=== PATIENT | female | born 1985 | race Caucasian/White ===

== ENCOUNTER 2019-08-13 13:53 | Observation (INO) | payer OTHER, SELFPAY ==
--- NOTE | 2019-08-13 15:57 | OBADM ---
This patient, Emilee Rivera, admitted to the OB room Labor/Delivery/Recovery 120 for observation. Patient/family oriented to hospital policies and general routines including ID bracelet, bed and alarms, visiting hours, pain management, procedures, bathroom and other care routines, personal items, smoking policy, room service/diet, and visiting hours. Patient/Family are encouraged to report perceived risks to care and to ask questions if they do not understand what they are told or what they should do.
--- NOTE | 2019-09-05 11:52 | PM.OBTRLD ---
OB - Triage/Final Diagnosis Visit Information Date of evaluation: 08/13/19 Final Diagnosis (1) Non-reassuring heart tones complicating , antepartum: Code(s): O36.8390 - Maternal care for abnormalities of the heart rate or rhythm, unspecified trimester, not applicable or unspecified Status: Acute
== END 2019-08-13 15:45 | disposition home or self-care (01) ==
PROVIDERS: Admitting Provider Obstetrics & Gynecology; PCP Family Medicine; Visit Provider Obstetrics & Gynecology
DX: O36.8330 Maternal care for abnormalities of the fetal heart rate or rhythm, third trimester, not applicable or unspecified (principal); Z3A.38 38 weeks gestation of pregnancy
CPT/HCPCS: G0378; G0379

== ENCOUNTER 2019-08-20 13:38 | Outpatient (CLI) | payer OTHER, SELFPAY ==
[2019-08-20 14:15] LABS: Mean Corpuscular HGB Conc 34.3 g/dl (32-36); Mean Corpuscular Hemoglobin 32.3 pg (26-34); Mean Corpuscular Volume 94.3 fl (80-100); Mean Platelet Volume 9.9 fl (7.4-10.4); Platelet Count Result 164 k/mm3 (150-375); Red Blood Count 3.71 M/mm3 (4.2-5.4); Red Cell Distribution Width 13.5 % (11.5-14.5); White Blood Count 8.3 K/mm3 (4.5-10.0)
[2019-08-21 07:59] LABS: Rapid Plasma Reagin Non-Reactive (NonReactive)
--- NOTE | 2019-09-04 14:09 | OP_ITS ---
DATE OF PROCEDURE: 08/21/2019 ADDENDUM: DESCRIPTION OF PROCEDURE: The 2nd layer of the same suture was used for hemostasis and reinforcement. Next, attention was turned to the right fallopian tube, which was grasped with a Peng clamp. A defect was made in the mesosalpinx with the Bovie cautery. Two free ties of 0 plain gut were placed around the fallopian tube and the intervening segment of tube was excised with excellent hemostasis noted. The same procedure was then performed on the left fallopian tube. Both tubal segments were sent for pathologic evaluation. Both tubal ligation sites were found to be hemostatic. The uterus was then returned to the abdomen. Cameron I MT: Héctor
== END 2019-08-20 13:39 | disposition home or self-care (01) ==
PROVIDERS: PCP Family Medicine; Visit Provider Obstetrics & Gynecology
DX: Z34.93 Encounter for supervision of normal pregnancy, unspecified, third trimester (principal); Z3A.00 Weeks of gestation of pregnancy not specified
CPT/HCPCS: 36415; 85027; 86592; 86900; 86901

== ENCOUNTER 2019-08-21 09:29 | Inpatient (IN) | payer OTHER, SELFPAY ==
[2019-08-21] VITALS (54 sets, daily range): BP systolic 106–158; BP diastolic 64–108; PULSE 62–122; RESP 16–20; TEMP 36.3–37.4; O2SAT 96–100; BMI 39.0
[2019-08-21] MEDS: LACTATED RINGERS 1,000 ML 125 ML IV CONT ×2 (10:02→10:33)
--- NOTE | 2019-08-21 10:10 | HP_ITS ---
CHANGED TO DRAFT 08/27/19 REPORT MOVED FROM [id number] TO CORRECT [id number]/ORIGINALLY SIGNED 08/21/19 @ 1214 DATE OF SERVICE: 08/20/2019 Surgery is scheduled today on August 21. HISTORY OF PRESENT ILLNESS: The patient is 34 years old, G5, P 3-0-1-3 at 39 weeks and 2 days gestation with history of 2 prior C-sections, who is being admitted for elective repeat plus tubal ligation. Her has been complicated by gestational diabetes, diet controlled. She has a history of preeclampsia, but none in this . She is feeling normal movement, occasional contractions. No vaginal bleeding and no leakage of fluid. MEDICAL HISTORY: Negative. CURRENT MEDICINES: None. ALLERGIES: NO KNOWN DRUG ALLERGIES. SURGICAL HISTORY: x2. Appendectomy and cholecystectomy. SOCIAL HISTORY: She quit smoking. Denies alcohol or drug use. OBSTETRICAL HISTORY: She had a 40-week vaginal delivery and a 37-week due to preeclampsia and then a 28-week due to preeclampsia and also 1 miscarriage. REVIEW OF SYSTEMS: Negative. PHYSICAL EXAMINATION: VITAL SIGNS: Her weight is 221, blood pressure 137/83. GENERAL: No apparent distress. HEART: Regular rate and rhythm. LUNGS: Clear to auscultation. ABDOMEN: Gravid, soft, nontender, nondistended. EXTREMITIES: Nontender with trace edema. CERVICAL: 1 cm thick, -3 station. ASSESSMENT AND PLAN: 1. G5, P 3-0-1-3 at 39 weeks gestation with history of 2 prior C-sections. Plan is to proceed with repeat . 2. status is reassuring. 3. GBS is negative. 4. Gestational diabetes, diet controlled. We will plan to check blood sugar prior to delivery. 5. Desires sterilization. She has signed consent in the office and at the hospital as well and wants to proceed with tubal ligation along with her C-sections, so that is the plan. D I MT: Héctor DECKER
--- NOTE | 2019-08-21 10:16 | LDADM ---
This patient, Emilee Rivera, was admitted to Labor/Delivery/Recovery 120 on 08/21/19 at 09:29. Plans for labor, pain management and were discussed with patient. Patient/family oriented to hospital policies and general routines including ID bracelet, bed and alarms, visiting hours, pain management, procedures, bathroom and other care routines, personal items, smoking policy, room service/diet and guest tray routines, security routines, and visiting hours. Patient/Family are encouraged to report perceived risks to care and to ask questions if they do not understand what they are told or what they should do. See OBIX for further documentation.
[2019-08-21 10:42] LABS: Glucose Point of Care 79 (65-105)
--- NOTE | 2019-08-21 11:56 | WPDANESEPPF ---
Anes - Initial Pre Proc Eval Procedure: Operation Date: 08/21/19 12:00 Proposed Procedures p Repeat Section with Bilateral Tubal Ligation - Maribel Hanson MD Date/Time: 08/21/19 11:56 Surgeon: Maribel Hanson MD Pre Op Diagnosis: Scheduled Patient Data Age: 34 Gender: F Height: 1.6 m Weight: 100 kg Last Vital Signs Temp 36.3 C L 08/21/19 10:36 Pulse 85 08/21/19 10:31 BP 114/73 08/21/19 10:31 Allergies Allergy/AdvReac Type Severity Reaction Status Date / Time talc Allergy Intermediate RASH, Verified 10/10/18 12:32 ITCHING BABY POWDER Home Medications Medication Instructions Recorded Confirmed Type PNV cmb#95-ferrous fumarate-FA 1 tablet PO DAILY 07/26/19 07/26/19 History [] aspirin 162 mg PO DAILY 07/26/19 07/26/19 History Laboratory Tests 08/21/19 10:39 POC Capillary Glucose 79 mg/dl mg/dl (65-105) Patient hx anesthesia problems: none Family hx anesthesia problems: none PMFSH Family History Family History (Updated 07/26/19 @ 15:04 by Tom Scott RN) Other Acute myocardial infarction Degenerative disorder of bone Diabetes mellitus Hypertension Social History Social History Smoking status: Former smoker Substance use: never Gender identity (if verbalized by the patient): Female Spiritual care concerns: No Anes - Eval Final PreProcedure Day of Procedure 08/21/19 11:56 Patient weight: overweight Heart: regular rate and rhythm Lungs: clear to auscultation and normal air movement Airway: Mallampati scale class II Neurological: alert and oriented Last oral intake: >/= 8 hours ASA classification: II Emergent: no Anesthetic plan: proceed Anesthesia type and monitoring: regional spinal Informed Consent: The patient's anesthetic plan and its attendant risks and benefits were discussed with the patient/family/POA. Questions were solicited and answers provided to the satisfaction of the patient/family/POA.
--- NOTE | 2019-08-21 12:09 | WPDHPUPDATE1 ---
History and Physical Update Update Date/Time: 08/21/19 12:09 History and Physical has been reviewed, including an updated exam of the patient. There are NO changes in the patient's condition. Risks, benefits, and alternatives have been discussed and questions answered. Patient agrees to proceed with procedure.
--- NOTE | 2019-08-21 12:09 | PM.OP ---
Procedure Note - Brief Procedure Note - Brief Date of procedure: 08/21/19 Pre-op diagnosis: Scheduled desires sterilization Post-op diagnosis: same Procedure performed: Repeat LTCS + BTL Anesthesia: spinal Surgeon: Maribel Hanson MD Estimated blood loss (mL): 560 Drains: Yes ([place]) Packing: No Pathology: yes Complications: No immediate complications Condition: stable Disposition: floor Findings: Female infant, cephalic, Apgars 9/9, weight 6#13oz, normal uterus/tubes/ovaries
--- NOTE | 2019-08-21 16:10 | PC.NURSE ---
Patient transferred to post room #282 via stretcher. Support person present. Oriented to unit, room, information board, rooming in, admission packet and security measures. Patient verbalizes understanding.
[2019-08-21] MEDS: SIMETHICONE 80 MG TAB.CHEW PO (23:45)
[2019-08-22 05:30] VITALS: BP 122/70; PULSE 98; RESP 16; TEMP 36.9; O2SAT 99
[2019-08-22] MEDS: SIMETHICONE 80 MG TAB.CHEW PO ×4 (05:45→17:32)
[2019-08-22 06:19] LABS: Basophils Percent Auto 0.3 % (0.2-1.2); Eosinophils Percent Auto 0.3 % (0-4.4); Hematocrit 33.9 % (37.0-47.0); Hemoglobin 11.4 g/dL (12.0-15.0); Immature Granulocyte Absolute 0.05 K/mm3 (0.00-0.031); Immature Granulocyte Percent A 0.4 % (0-0.5); Lymphocytes Percent Auto 11.1 % (18.3-44.2); Mean Corpuscular HGB Conc 33.6 g/dl (32-36); Mean Corpuscular Hemoglobin 32.4 pg (26-34); Mean Corpuscular Volume 96.3 fl (80-100); Mean Platelet Volume 10.1 fl (7.4-10.4); Monocytes Absolute Auto 1.3 K/mm3 (0.1-0.6); Monocytes Percent Auto 9.6 % (2.6-8.5); Neutrophils Absolute Auto 10.6 K/mm3 (1.3-6.7); Neutrophils Percent Auto 78.3 % (45.5-73.1); Platelet Count Result 164 k/mm3 (150-375); Red Blood Count 3.52 M/mm3 (4.2-5.4); Red Cell Distribution Width 13.4 % (11.5-14.5); White Blood Count 13.5 K/mm3 (4.5-10.0)
--- NOTE | 2019-08-22 06:19 | OP_ITS ---
DATE OF PROCEDURE: 08/21/2019 PREOPERATIVE DIAGNOSIS: Intrauterine at 39 weeks and 2 days with history of 2 prior C-sections and desires sterilization. POSTOPERATIVE DIAGNOSIS: Intrauterine at 39 weeks and 2 days with history of 2 prior C-sections and desires sterilization. PROCEDURE PERFORMED: Repeat low transverse section plus bilateral tubal ligations. ANESTHESIA: Spinal, then epidural. ESTIMATED BLOOD LOSS: 560 mL. COMPLICATIONS: None. FINDINGS: Female infant, cephalic presentation. Apgars 9 and 9. Weight 6 pounds 13 ounces. Normal uterus, tubes, and ovaries. INDICATIONS: 34-year-old, G5, P 3-0-1-3 at 39 weeks and 2 days with history of 2 prior C-sections. She had expressed a desire throughout her for repeat and tubal ligation and continued desire for that today. DESCRIPTION OF PROCEDURE: She was taken to the operating room where spinal anesthesia was obtained and given her lidocaine only in her spinal which was not adequate for a , so then proceeded to place an epidural. Once it had set up and was adequate, she was prepared and draped in the normal sterile fashion in the dorsal supine position with a leftward tilt. A Pfannenstiel skin incision was made over her prior incision with a scalpel and extended to the underlying layer of the fascia with the scalpel. The fascia was incised in the midline with a scalpel and extended laterally with the Saeed scissors. The underlying rectus muscles were dissected off bluntly and sharply. The rectus muscles were in the midline. The peritoneum was entered sharply and extended inferiorly and superiorly with good visualization of the bladder. The bladder blade was inserted. The vesicouterine peritoneum was tented up and entered sharply with the Metzenbaum scissors and extended laterally. The bladder flap was created sharply. The bladder blade was reinserted. The lower uterine segment was incised in a transverse fashion with the scalpel. The incision was digitally stretched in the cephalocaudad direction. The membranes were ruptured with clear fluid noted. The 's head was delivered atraumatically. The shoulders and body were delivered easily. The cord was clamped x2 and cut, and the infant was passed to the awaiting nurse. Cord gas and cord blood were obtained. The placenta was manually extracted. The uterus was exteriorized and cleared of all clots and debris. The uterine incision was closed using 0 Vicryl in a running locked fashion. A 2nd layer of the same suture was used for hemostasis and reinforcement. The uterus was then returned to the abdomen. The gutters were cleared of all clots and debris. The uterine incision was reinspected and found to be hemostatic. The rectus muscles were inspected. Any bleeding points were cauterized. The rectus muscles were reapproximated using a 0 Vicryl [id number]-[id number] suture. The fascia was then closed using 0 Vicryl in a running fashion. The subcutaneous tissue was irrigated. All bleeding points were cauterized. The subcutaneous tissue was closed using 2-0 Vicryl [id number]-[id number] sutures and the skin was closed using Insorb absorbable denice. She tolerated the procedure well. Sponge, lap, needle, and instrument counts were correct x2, and she was taken to the recovery room in stable condition. Camreon I MT: Héctor
[2019-08-22] MEDS: DOCUSATE SODIUM 100 MG CAPSULE PO ×2 (07:10→17:32)
[2019-08-22] MEDS: IBUPROFEN 600 MG TABLET PO ×2 (07:10→14:06)
[2019-08-22] MEDS: MULTIVIT/MIN/PREN/FOL AC/IRON TABLET 1 TAB PO (07:13)
--- NOTE | 2019-08-22 07:37 | PM.OBPNVD ---
OB - PN: Subj Subjective Date/time seen: 08/22/19 07:37 OB - PN: Obj Data Labs CBC & Chem 7: 08/22/19 05:36 Labs: Laboratory Results - last 24 hr 08/21/19 08/22/19 10:39 05:36 WBC 13.5 H RBC 3.52 L Hgb 11.4 L Hct 33.9 L MCV 96.3 MCH 32.4 MCHC 33.6 RDW 13.4 Plt Count 164 MPV 10.1 Immature Gran % (Auto) 0.4 Neut % (Auto) 78.3 H Lymph % (Auto) 11.1 L Traill % (Auto) 9.6 H Eos % (Auto) 0.3 Baso % (Auto) 0.3 Lymph # (Auto) 1.50 Traill # (Auto) 1.3 H Eos # (Auto) 0.0 Baso # (Auto) 0.0 Abs Immat Gran (auto) 0.05 H Absolute Neuts (auto) 10.6 H Absolute Nucleated RBC 0.0 Nucleated RBC % 0.0 POC Capillary Glucose 79 OB - PN A/P Plan day: 1 Plan: routine care Time Spent With Patient Time: Total time spent is greater than 50% in coordination of care (as documented) at patient's floor/unit and/or counseling patient: Review of Systems Review of Systems: All systems reviewed & are unremarkable except as noted in HPI and below Exam Const: General: comfortable Resp: Effort & Inspection: normal respiratory effort Psych: Appearance: grossly normal Affect: normal affect Attitude: cooperative Judgement: Good judgement present (Psych)
[2019-08-22 08:45] VITALS: BP 109/70; PULSE 88; RESP 16; TEMP 37.1; O2SAT 96
--- NOTE | 2019-08-22 09:26 | WPDANLDPN2 ---
Anes-Prog Note L&D Date/Time: 08/22/19 09:26 Comfortable throughout: section Neuraxial method: spinal Epidural/Spinal procedure site: clean & non-tender Neuro status: Neuro function grossly intact. Cardiovascular status: normal Respiratory status: normal Airway patency: baseline Mental status: baseline Post-Op hydration status: normal Vital Signs: Last Vital Signs Temp 36.9 C 08/22/19 05:30 Pulse 98 08/22/19 05:30 Resp 16 08/22/19 05:30 BP 122/70 08/22/19 05:30 Pulse Ox 99 08/22/19 05:30 I/O: Intake & Output 08/21/19 08/22/19 08/22/19 23:59 07:59 15:59 Intake Total 1740 1000 Output Total 1500 750 Balance 240 250 Post-procedural complaints: none Patient feedback: Patient satisfied with anesthetic care.
--- NOTE | 2019-08-22 09:27 | WPDANLDNPN2 ---
Anes-Prog Note L&D-Neuraxial Date/Time: 08/22/19 09:27 Neuraxial medications: intrathecal PF morphine Opiod-related complaints: none Patient feedback: Patient satisfied with post-operative pain management.
--- NOTE | 2019-08-22 10:00 | PC.NURSE ---
Consulted with patient, mother reports she has attempted to breastfeed with other three children without success. Mother is pleased this is eagerly latching. Reviewed infant feeding cues, frequencies, duration of feedings, feeding elimination flow sheet, and signs of adequate intake. Mother has to breast in cradle with shallow latch. Reviewed positioning/alignment in cross cradle, holding breast in U hold and guided asymmetrical latch on. Discussed the rational for each. Infant was able to latch correctly. nursed eagerly, with steady draws and frequent swallowing noted. Reviewed signs of a correct latch, effective nursing and suck swallow ratio. Infant was able to maintain latch without discomfort to mother. Nipple care reviewed. sleepy at times with long pausing, advised to stimulate to keep awake and nursing effectively. Instructed mother to call out for RN assistance if she is unable to latch infant for feeding or she has discomfort with nursing. Instructed feeding should be initiated three hours from start of last feeding or if feeding cues are noted before. Mother voiced understanding of information shared.
--- NOTE | 2019-08-22 18:34 | PC.NURSE ---
Patient was given the opportunity to view the discharge video Mother & Baby Care, The First Two Weeks and to ask questions. Patient declined viewing the video and has been given the mother/baby guide for home reference.
[2019-08-22 20:30] VITALS: BP 129/94; PULSE 97; RESP 18; TEMP 36.9; O2SAT 97
[2019-08-23] MEDS: IBUPROFEN 600 MG TABLET PO ×3 (02:42→16:22)
[2019-08-23] MEDS: SIMETHICONE 80 MG TAB.CHEW PO ×2 (02:42→09:29)
[2019-08-23 07:25] VITALS: BP 101/66; PULSE 84; RESP 15; TEMP 36.5; O2SAT 98
--- NOTE | 2019-08-23 07:30 | PC.NURSE ---
PT introductions made and plan of care discussed per post op c section, pain management, breast feeding, daily care activities. PT verbalized understanding of such care.
--- NOTE | 2019-08-23 07:40 | PM.OBPNVD ---
OB - PN: Subj Subjective Date/time seen: 08/23/19 07:40 Patient comments: no complaints, pain well controlled, tolerating diet, flatus present and other (Ambulating and voiding without problems. Lochia similar to menses) baby status: doing well OB - PN: Obj Data Labs CBC & Chem 7: 08/22/19 05:36 OB - PN A/P Plan day: 2 (s/p C section, doing well) Plan: routine care Time Spent With Patient Time: Total time spent is greater than 50% in coordination of care (as documented) at patient's floor/unit and/or counseling patient: Exam Const: General: no acute distress Resp: Auscultation: clear to auscultation bilaterally Cardio: Rate: regular rate Rhythm: regular rhythm GI: Inspection: non-distended, incision (Intact without erythema, drainage, or induration) and other (Fundus firm and nontender below umbilicus) GI Palp: Yes abdominal tenderness (appropriate) and Yes Soft to palpation Extrem: General: no edema
[2019-08-23] MEDS: DOCUSATE SODIUM 100 MG CAPSULE PO (09:26)
[2019-08-23] MEDS: MULTIVIT/MIN/PREN/FOL AC/IRON TABLET 1 TAB PO (09:26)
--- NOTE | 2019-08-23 09:40 | PC.NURSE ---
Mother has to breast upon entering. Reviewed feeding cues, frequencies, duration of feedings, feeding elimination flow sheet, and signs of adequate intake. Reviewed positioning/alignment in cross cradle, holding breast in U hold and guided asymmetrical latch on. Discussed rational for each. was latched correctly. Mother denies difficulties/discomfort with feeding. Infant nursed eagerly, with steady draws and frequent swallowing noted. Reviewed signs of a correct latch, effective nursing and suck swallow ratio. Infant was able to maintain latch without discomfort to mother. Nipple care reviewed. Advised to stimulate to keep awake and nursing effectively. Instructed mother to call out for RN assistance if she is unable to latch for feeding or she has discomfort with nursing. Instructed feeding should be initiated three hours from start of last feeding or if feeding cues are noted before. Mother voiced understanding of information shared.
--- NOTE | 2019-08-23 17:19 | PC.NURSE ---
On 08/23/19, the student, [ Willie Naqvi], provided care and completed [facility] documentation on this patient. I have reviewed the student's documentation and agree with the findings.
[2019-08-23 20:40] VITALS: BP 128/88; PULSE 81; RESP 18; TEMP 36.9; O2SAT 100
[2019-08-24] MEDS: SIMETHICONE 80 MG TAB.CHEW PO ×2 (00:28→17:02)
[2019-08-24] MEDS: IBUPROFEN 600 MG TABLET PO ×3 (00:28→15:10)
--- NOTE | 2019-08-24 07:33 | PM.OBPNVD ---
OB - PN: Subj Subjective Date/time seen: 08/24/19 07:33 Patient comments: no complaints, pain well controlled, tolerating diet, flatus present and other (Lochia less than menses. Ambulating and voiding without problems) baby status: doing well OB - PN: Obj Data Labs CBC & Chem 7: 08/22/19 05:36 OB - PN A/P Plan day: 3 (s/p section, doing well and ready to be discharged home) Plan: routine care, discharge home and other (Follow up in office in 1 week) Time Spent With Patient Time: Total time spent is greater than 50% in coordination of care (as documented) at patient's floor/unit and/or counseling patient: Exam Const: General: no acute distress Resp: Auscultation: clear to auscultation bilaterally Cardio: Rate: regular rate Rhythm: regular rhythm GI: Inspection: non-distended, incision (Intact without erythema, drainage, or induration) and other (Fundus firm and nontender below umbilicus) GI Palp: Yes abdominal tenderness (appropriate) and Yes Soft to palpation Extrem: General: no edema
--- NOTE | 2019-08-24 07:33 | PM.OBDSVD ---
DS: Diagnosis Discharge Diagnosis (1) Previous delivery affecting , delivered: Code(s): O34.219 - Maternal care for unspecified type scar from previous delivery Status: Acute (2) Sterilization: Code(s): Z30.2 - Encounter for sterilization Status: Acute OB - DS: Summary OB Procedures : NST OB Procedures Intrapartum: OB Procedures: : None Peripartum Data Delivery Method: Section Procedures: Procedures Operation Date: 08/21/19 12:00 Actual Procedures Side Surgeon p Repeat Section with Bilateral Tubal Ligation Maribel Hanson MD complications: none Status at Discharge Functional status at discharge: independent ambulation Overall status at discharge: patient is progressing back to baseline Time Spent with Patient Time attestation: Total time spent providing and/or coordinating discharge services: Time spent: Less than 30 minutes DS: Data Data Completed and Pending Completed studies during hospitalization: Pending at discharge 08/21/19 12:58 Surgical [PTH] Routine Discharge Plan Discharge Attending physician on discharge: Maribel Hanson Discharging Clinician: Maribel Hanson Patient Disposition: Home, Self-Care Activity: may shower and pelvic rest Diet: regular Wound Care Instructions: incision open to air Patient Instructions: Antibiotic Form Stand Alone Forms: General Discharge Information Follow-up/Referrals: Maribel Hanson MD [Physician] - 1 Week Discharge Medications: New hydrocodone-acetaminophen 5-325 mg Tablet 1 tab PO Q3H PRN (Reason: Moderate Pain (4-6)) Qty: 30 RF: 0 ibuprofen 600 mg Tablet 600 mg PO Q6H PRN (Reason: Cramping) Qty: 60 RF: 0 Continued PNV cmb#95-ferrous fumarate-FA [] 28 mg iron- 800 mcg Tablet 1 tablet PO DAILY RF: 0 Discontinued aspirin 81 mg Tablet,Chewable 162 mg PO DAILY RF: 0 Date of admission: 08/21/19 09:29 Primary Care Provider: Phong*Rupa Admitting Provider: Maribel Hanson Attending physician on admission: Maribel Hanson
[2019-08-24 07:55] VITALS: BP 93/61; PULSE 72; RESP 16; TEMP 36.4; O2SAT 99
--- NOTE | 2019-08-24 08:45 | PC.NURSE ---
Mother is able to independently latch infant with appropriate positioning/alignment. She denies any nipple discomfort, is feeding as required and waking to feed if needed. Mother chooses to supplement after . Mother will feel more comfortable with discontinuing supplement once her milk is in. Discussed pumping a few times per day for stimulation of supply has had several effective feedings in the past 24 hours, and is currently meeting outcomes for weight, output, jaundice and feeding frequencies. Mother states she feels confident to continue effective at home. Reviewed transition to breast milk, signs of adequate intake, and engorgement/relief. Instructed to call ICP if intake/output less than required. Reviewed regular medications mother is taking. Information provided per R[place]. Reviewed community resources on the [facility] website and in the Mom/Baby guide. Information on outpatient services provided. Mother has no further questions at this time.
--- NOTE | 2019-08-24 08:45 | PC.NURSE ---
Patient viewed the discharge video Mother & Baby Care, The First Two Weeks . Patient was given the opportunity and encouraged to ask questions. Patient verbalized understanding of information shared and has been given the mother/baby guide for home reference.
[2019-08-24] MEDS: DOCUSATE SODIUM 100 MG CAPSULE PO ×2 (08:49→17:02)
[2019-08-24] MEDS: MULTIVIT/MIN/PREN/FOL AC/IRON TABLET 1 TAB PO (08:49)
--- NOTE | 2019-08-24 17:00 | PC.NURSE ---
Patient declines [facility] follow up. She already has a follow up scheduled with Dr. Hanson on Monday 08/28.
== END 2019-08-24 18:40 | disposition home or self-care (01) | DRG 785 ==
LOC: ANHLDR 10:07 → ANHOB2 16:19
PROVIDERS: Admitting Provider Obstetrics & Gynecology; PCP Family Medicine; Visit Provider Obstetrics & Gynecology
PROC: 10D00Z1 Extraction of Products of Conception, Low, Open Approach (ICD-10-PCS; CPT 59514; principal; 2019-08-21 12:00)
DX: O34.211 Maternal care for low transverse scar from previous cesarean delivery (principal); Z37.0 Single live birth; Z3A.39 39 weeks gestation of pregnancy; O24.420 Gestational diabetes mellitus in childbirth, diet controlled; Z23 Encounter for immunization; Z30.2 Encounter for sterilization
CPT/HCPCS: 36415; 85025; 85027; 86592; 86900; 86901; 88302; 88307; 90471; 90686; A9270; G0008; J2274; J2590; J7120

== ENCOUNTER 2021-06-28 15:29 | Emergency (ER) | payer OTHER, SELFPAY ==
--- NOTE | ~2021-06-28 | XR_ITS ---
EXAMINATION: XR ankle RT min 3V EXAM DATE: 06/28/2021 18:15 INDICATION: Trauma. TECHNIQUE: Right ankle frontal, lateral and oblique projections obtained and reviewed. Comparison is made to prior examination from 05/07/2018. FINDINGS: The right ankle mortise appears intact. There are no acute fractures or dislocations iden tified. There is no subcutaneous gas. There is soft tissue swelling over the ankle laterally. Ther e are no radiopaque foreign bodies. IMPRESSION: 1. XR ankle RT min 3V exam without acute osseous findings. 2. Soft tissue swelling. Reviewed, dictated and finalized at location A. PTURE INSTRUCTOR
[2021-06-28 15:39] VITALS: BP 117/81; PULSE 114; RESP 16; TEMP 36.6; O2SAT 100
[2021-06-28] MEDS: HYDROcodone/acetaminophen (*CRX) 5-325 MG TABLET 1 TAB PO (18:21)
--- NOTE | 2021-06-28 18:44 | ED.LOWEXIN ---
HPI - Extremity Injury (Lower) General Chief Complaint: Extremity Injury, Lower Stated Complaint: R ANKLE INJURY Time Seen by Provider: 06/28/21 17:48 History of Present Illness HPI Narrative: Patient is a 36-year-old female who presents ER with right ankle pain. She has swelling over the lateral aspect of her ankle. Patient reports she was walking through a parking lot last night on her way to a bar when she stepped over a parking block and stepped into a hole. She suffered inversion injury and pain. Had difficulty bearing weight initially but then was able to drink some shots and ambulate for the rest the evening. Today she can only ambulate if she does toe-touch weightbearing. No numbness or tingling. Denies fevers or chills or sweats. She did not strike her head or lose consciousness. Related Data Allergies Allergy/AdvReac Type Severity Reaction Status Date / Time talc Allergy Intermediate RASH, Verified 10/10/18 12:32 ITCHING BABY POWDER Review of Systems Constitutional: Constitutional: Denies chills, Denies fever(s) and Denies weakness Musculoskeletal: Musculoskeletal: Denies back pain, Reports arthralgias, Reports joint swelling and Denies muscle cramps Integumentary/Breasts: Comments: Abrasions to the feet and holman due to fall. Neurologic: Denies syncope, Denies headache(s), Denies focal weakness and Denies numbness PMFSH Past Medical History Medical History (Updated 06/28/21 @ 19:00 by Taran Suarez MD) Healthy female adult Surgical History Surgical History (Updated 06/28/21 @ 19:00 by Taran Suarez MD) H/O dilation and curettage History of appendectomy History of cholecystectomy Previous section Family History Family History (Updated 07/26/19 @ 15:04 by Tom Scott RN) Other Acute myocardial infarction Degenerative disorder of bone Diabetes mellitus Hypertension Social History Social History Smoking status: Former smoker Substance use: never Gender identity (if verbalized by the patient): Female Spiritual care concerns: No Exam Narrative: GENERAL: Well-appearing, well-nourished, and in no acute distress. HEAD: Normocephalic, atraumatic. CHEST: Clear to auscultation. No respiratory distress. HEART: Regular rate and rhythm. EXTREMITIES: Focused exam the right ankle reveals swelling over the lateral malleolus with tenderness and bruising. Limited flexion extension of the ankle due to pain. Neurovascular intact distal to the injury. No tenderness and no limitation range of motion in the knee or hip on the right side. SKIN: Warm, dry, no rash. Abrasions of the feet and left holman. NEURO: No focal deficits. Alert and oriented x3. PSYCH: Normal mood and affect. Course Course Emergency Course: Patient informed results. She has been given crutch training. Recommend purchasing ankle stirrup splint. Vital Signs Vital signs: Vital Signs Temperature 97.8 F 06/28/21 15:39 Pulse Rate 114 H 06/28/21 15:39 Respiratory Rate 16 06/28/21 15:39 Blood Pressure 117/81 06/28/21 15:39 Pulse Oximetry 100 06/28/21 15:39 Temperature 97.8 F 06/28/21 15:39 Pulse Rate 114 H 06/28/21 15:39 Respiratory Rate 16 06/28/21 15:39 Blood Pressure 117/81 06/28/21 15:39 Pulse Oximetry 100 06/28/21 15:39 MDM - Extremity Injury (Lower) Imaging Data Radiologist's impression: ITS Impressions Ankle X-Ray 06/28/21 18:22 IMPRESSION: 1. XR ankle RT min 3V exam without acute osseous findings. 2. Soft tissue swelling. Discharge Plan Discharge Clinical Impression: Ankle sprain and strain Patient Disposition: Home, Self-Care Condition: Stable Instructions: Ankle Sprain (ED), Crutch Instructions (ED), Ankle Stirrup Splint (ED) Additional Instructions: You should purchase a ankle stirrup splint from [employer] or [facility]. Bear weight as tolerated with crutches. Follow-up with your primary care
== END 2021-06-28 19:19 | disposition home or self-care (01) ==
PROVIDERS: Emergency Provider Emergency Medicine; PCP Family Medicine
DX: S93.401A Sprain of unspecified ligament of right ankle, initial encounter (principal); S96.911A Strain of unspecified muscle and tendon at ankle and foot level, right foot, initial encounter; Z87.891 Personal history of nicotine dependence; X50.9XXA Other and unspecified overexertion or strenuous movements or postures, initial encounter
CPT/HCPCS: 73610; 99283; A9270

== ENCOUNTER 2021-08-07 13:40 | Observation (INO) | payer OTHER, MEDICAID, SELFPAY ==
[2021-08-07] VITALS (11 sets, daily range): BP systolic 97–137; BP diastolic 54–81; PULSE 62–108; RESP 14–25; TEMP 36.4–38.2; O2SAT 97–100; BMI 29.5
--- NOTE | ~2021-08-07 | XR_ITS ---
EXAMINATION: XR retrograde pyelo w/stent LT INDICATION: Left ureteral stones, left flank pain TECHNIQUE: 294 intraoperative fluoroscopic images are submitted for review. Total fluoroscopic time i s 44.9 seconds. COMPARISON: None available FINDINGS: Fluoroscopic images demonstrate mild left hydroureteronephrosis. A left internal ureteral s tent is seen coiling in the left renal pelvis. IMPRESSION: 1. Mild left hydroureteronephrosis with fluoroscopic images demonstrating the internal ureteral stent coiling in the left renal pelvis. Please refer to procedure note for full details. Reviewed, dictated and finalized at location F. MAKER IMPRESSION: 1. Mild left hydroureteronephrosis with fluoroscopic images demonstrating the i nternal ureteral stent coiling in the left renal pelvis. Please refer to proced ure note for full details.
--- NOTE | ~2021-08-07 | CT_ITS ---
EXAMINATION: CT abdomen pelvis wo con EXAM DATE: 08/07/2021 15:43 INDICATION: left flank pain, HX kidney stones. Nausea and vomiting. TECHNIQUE: Spiral CT of the abdomen and pelvis was performed without contrast. Axial, coronal and sag ittal images were reviewed. The dose-length product (DLP) for this examination was 191.83 mGy-cm. T he exposure was tailored according to patient size (auto mA exposure control), and iterative reconstr uction (ASIR) was used as additional dose reduction technique. Comparison is made to prior examinatio n from 09/26/2018. FINDINGS: There are 2 left pelvic calcifications believed to be distal ureteral stones, the largest i s at the UVJ measuring 5 mm, axial image 153, next largest contiguous just proximal to this measuring 2 mm. There is mild left-sided obstructive nephropathy. 6 mm right inferior calyceal stone. Other sm aller bilateral calyceal stones. Right renal lesion probably cyst correlating with prior contrast enh anced study, measuring about 2.8 cm. The uterus is anteverted and morphologically normal. The bladder is unremarkable. The liver, splee n, adrenal glands and pancreas are unremarkable. Gallbladder is unremarkable. No biliary obstructio n. There is no retroperitoneal or pelvic lymphadenopathy. The appendix is normal. The stomach and small bowel are unremarkable. There is expected amount of c olonic stool. No free intraperitoneal gas. The heart is normal in size. There are no pericardial or pleural effusions. The lung bases are unremarkable. There are no osteoblastic or osteolytic les ions identified. IMPRESSION: 1. Left UVJ 5 mm stone, another 2 mm stone just proximal to this. Mild obstructive nephropathy. 2. Bilateral nephrolithiasis. Reviewed, dictated and finalized at location B. ING CARRIER IMPRESSION: 1. Left UVJ 5 mm stone, another 2 mm stone just proximal to this. Mild obstruc tive nephropathy. 2. Bilateral nephrolithiasis.
--- NOTE | 2021-08-07 15:08 | ED.ABDPAIN ---
HPI - Abdominal Pain General Chief Complaint: Abdominal Pain Stated Complaint: kidney stone? Time Seen by Provider: 08/07/21 14:46 Source: patient Mode of arrival: ambulatory Limitations: no limitations History of Present Illness HPI narrative: 36-year-old female presents to the ED with a 5-day history of left-sided flank pain as well as a 2-day history of nausea, dizziness, and generalized fatigue. Flank pain at times radiates to the left lower quadrant of the abdomen. Pain became more significant yesterday. She states that she has a history of nephrolithiasis which has required intervention in the past. No abdominal surgical history. LMP was approximately 1 week ago. No recent history of documented fever, chills, emesis, diarrhea, constipation, melena, hematochezia, dysuria, or hematuria. She has not taken any medication for her symptoms. Related Data Home Medications Medication Instructions Recorded Confirmed No Home Medications 08/07/21 08/07/21 Allergies Allergy/AdvReac Type Severity Reaction Status Date / Time talc Allergy Intermediate RASH, Verified 08/07/21 13:53 ITCHING BABY POWDER Review of Systems Review of Systems: CONSTITUTIONAL: Denies fever, chills, or sweats. EYES: Denies visual changes, redness, or discharge. ENT: Denies rhinorrhea, congestion, sore throat, or otalgia. CARDIOVASCULAR: Denies chest pain, palpitations, or edema. RESPIRATORY: Denies cough or dyspnea. GASTROINTESTINAL: + Flank pain and nausea. Denies vomiting and diarrhea. GENITOURINARY: Denies dysuria or hematuria. SKIN: Denies rash or itching. MUSCULOSKELETAL: Denies back pain, joint pain, or myalgia. NEUROLOGIC: Denies headache, numbness, dizziness, or weakness. PSYCHIATRIC: Denies anxiety or depression. All systems reviewed & are unremarkable except as noted in HPI and below PMFSH Past Medical History Medical History Healthy female adult Surgical History Surgical History H/O dilation and curettage History of appendectomy History of cholecystectomy Previous section Family History Family History Other Acute myocardial infarction Degenerative disorder of bone Diabetes mellitus Hypertension Social History Social History Smoking status: Former smoker Substance use: never Gender identity (if verbalized by the patient): Female Spiritual care concerns: No Exam Narrative: GENERAL: Well-appearing, well-nourished, and in no acute distress. HEAD: Normocephalic, atraumatic. EYES: PERRLA and EOMI. ENT: Nares clear, no rhinorrhea or epistaxis. Mucous membranes moist. Oropharynx without tonsillar hypertrophy exudate or other lesions. Bilateral TMs pearly cavazos nonbulging NECK: Supple. No adenopathy or masses. No carotid bruits or JVD CHEST: Clear to auscultation. No respiratory distress. No wheezes rales or rhonchi HEART: Regular rate and rhythm. No murmur heard. Normal peripheral pulses. ABDOMEN: Mild left flank tenderness palpation. Very mild left CVA tenderness. Remainder of abdomen is nontender to palpate. No guarding, rigidity, or rebound tenderness. EXTREMITIES: Normal range of motion. No edema. SKIN: Warm, dry, no rash. NEURO: No focal deficits. Alert and oriented x3. PSYCH: Normal mood and affect. Course Vital Signs Vital signs: Vital Signs Temperature 100.8 F H 08/07/21 13:50 Pulse Rate 108 H 08/07/21 13:50 Respiratory Rate 18 08/07/21 13:50 Blood Pressure 137/79 08/07/21 13:50 Pulse Oximetry 99 08/07/21 13:50 Temperature 100.8 F H 08/07/21 13:50 Pulse Rate 108 H 08/07/21 13:50 Respiratory Rate 18 08/07/21 13:50 Blood Pressure 137/79 08/07/21 13:50 Pulse Oximetry 99 08/07/21 13:50 MDM - Abdominal Pain
[2021-08-07 15:38] LABS: Basophils Percent Auto 0.3 % (0.2-1.2); Eosinophils Percent Auto 0.1 % (0-4.4); Hematocrit 40.6 % (37.0-47.0); Hemoglobin 13.4 g/dL (12.0-15.0); Immature Granulocyte Absolute 0.06 K/mm3 (0.00-0.031); Immature Granulocyte Percent A 0.5 % (0-0.5); Lymphocytes Absolute Auto 1.59 K/mm3 (0.9-3.2); Mean Corpuscular Hemoglobin 32.1 pg (26-34); Mean Corpuscular Volume 97.4 fl (80-100); Mean Platelet Volume 9.3 fl (7.4-10.4); Monocytes Absolute Auto 1.4 K/mm3 (0.1-0.6); Neutrophils Absolute Auto 9.2 K/mm3 (1.3-6.7); Neutrophils Percent Auto 75.1 % (45.5-73.1); Platelet Count Result 206 k/mm3 (150-375); Red Blood Count 4.17 M/mm3 (4.2-5.4); Red Cell Distribution Width 12.9 % (11.5-14.5); White Blood Count 12.2 K/mm3 (4.5-10.0)
[2021-08-07 15:48] LABS: Alanine Aminotransferase 31 U/L (4-35); Albumin Level 3.7 g/dL (3.5-5.1); Alkaline Phosphatase 56 U/L (38-126); Anion Gap 7 mmol/L (8-16); Aspartate Amino Transferase 46 U/L (14-36); Bilirubin,Total 0.8 mg/dL (0.2-1.3); Blood Urea Nitrogen 9 mg/dL (7-17); Calcium 8.5 mg/dL (8.4-10.2); Carbon Dioxide 27 mmol/L (22-30); Chloride 102 mmol/L (98-107); Estimated CRCL calculation 73 ml/min; Estimated Glomerular Filt Rate > 60; Glucose 99 mg/dL (65-110); Potassium 4.3 mmol/L (3.4-5.0); Sodium 136 mmol/L (137-145)
[2021-08-07] MEDS: KETOROLAC 30 MG/ML VIAL (*BKC) 15 MG IV PUSH (15:48)
[2021-08-07] MEDS: ONDANSETRON INJ 4 MG/2 ML VIAL IV PUSH ×2 (15:48→16:52)
[2021-08-07 16:09] LABS: Add Urine Microscopic? YES; Amorphous Sediment Urine Few; Appearance Urine Cloudy (Clear); Bacteria Urine Trace /hpf; Bilirubin Urine Negative (Negative); Blood Urine 2+ (Negative); Color Urine Yellow (Yellow); Glucose Urine UA Negative (Negative); Ketones Urine Negative (Negative); Leukocyte Esterase Ur 3+ LEU/UL (Negative); Mucus Urine Rare /lpf; Nitrate Urine Negative (Negative); Protein Urine 1+ mg/dL (Negative); RBC Urine >75 /hpf (0-2); Specific Grav Ur 1.014 (1.001-1.035); Squamous Epithelial Cell Urine Few /hpf (Few); Urobilinogen Urine Negative mg/dL (<2.0); WBC Clumps Urine Present /HPF; WBC Urine >75 /hpf
[2021-08-07] MEDS: MORPHINE SULFATE (*CRX) 4 MG/ML INJ IV PUSH (16:52)
[2021-08-07] MEDS: cefTRIAXone 2 GM in SODIUM CHLORIDE 0.9% IV 100 ML 200 ML IVPB (16:52)
--- NOTE | 2021-08-07 16:52 | WPDURCON ---
Assessment and Plan Assessment and plan (1) Calculus of left ureter: Code(s): N20.1 - Calculus of ureter Status: Acute Assessment and Plan: This is a 36-year-old female with a history of nephrolithiasis who presents with a obstructing left collecting system due to distal ureteral stones and associated infection, concerning for urosepsis. -the patient to be taken to the operating today for cystoscopy and left ureteral stent insertion. She understands the risks of procedure include not limited to infection, bleeding, pain, inability to place stent, need for additional operations. She understands the need for definitive stone management operation at a later date. -the patient will be admitted postoperatively for IV antibiotics. (2) UTI (urinary tract infection): Code(s): N39.0 - Urinary tract infection, site not specified Status: Acute (3) Renal calculus, bilateral: Code(s): N20.0 - Calculus of kidney Status: Acute Urology Consult Note HPI Date Seen: 08/07/21 Primary Care Provider: Rupa Richardson, Consult Narrative Narrative: Emilee Rivera is a 36 year old female who presented the ER with pain and fever. She was found on CT scan imaging to have obstructing left ureteral stones. Urology was consulted to evaluate the patient. Patient states she has fevers chills. She denies nausea vomiting. Review of Systems Review of Systems: All systems reviewed & are unremarkable except as noted in HPI and below PMFSH Past Medical History Medical History Healthy female adult Surgical History Surgical History H/O dilation and curettage History of appendectomy History of cholecystectomy Previous section Family History Family History Other Acute myocardial infarction Degenerative disorder of bone Diabetes mellitus Hypertension Social History Social History Smoking status: Former smoker Substance use: never Gender identity (if verbalized by the patient): Female Spiritual care concerns: No Meds Home Medications and Allergies Home Medications Medication Instructions Recorded Confirmed Type No Home Medications 08/07/21 08/07/21 History Allergies Allergy/AdvReac Type Severity Reaction Status Date / Time talc Allergy Intermediate RASH, Verified 08/07/21 13:53 ITCHING BABY POWDER Vital Signs Vital Signs - 24 hr 08/07/21 13:50 08/07/21 16:00 08/07/21 16:15 Temperature 38.2 C H Pulse Rate 108 H 100 98 Respiratory Rate 18 25 H 23 H Blood Pressure 137/79 Pulse Oximetry 99 99 98 08/07/21 16:30 Temperature Pulse Rate 91 Respiratory Rate 19 Blood Pressure Pulse Oximetry 98 Results Labs CBC & Chem 7: 08/07/21 15:23 08/07/21 15:23 Labs: Short CBC 08/07/21 Range/Units 15:23 WBC 12.2 H (4.5-10.0) K/mm3 Hgb 13.4 (12.0-15.0) g/dL Hct 40.6 (37.0-47.0) % Plt Count 206 (150-375) k/mm3 BMP 08/07/21 15:23 Sodium 136 L Potassium 4.3 Chloride 102 Carbon Dioxide 27 BUN 9 D Creatinine 0.90 Glucose 99 Calcium 8.5 Liver Function 08/07/21 Range/Units 15:23 Total Bilirubin 0.8 (0.2-1.3) mg/dL AST 46 H (14-36) U/L ALT 31 (4-35) U/L Alkaline Phosphatase 56 (38-126) U/L Albumin 3.7 (3.5-5.1) g/dL Urine 08/07/21 Range/Units 15:25 Urine Color Yellow (Yellow) Urine Appearance Cloudy H (Clear) Urine pH 7.0 (5.0-9.0) Ur Specific [place] 1.014 (1.001-1.035) Urine Protein 1+ H (Negative) mg/dL Urine Glucose (UA) Negative (Negative) mg/dL [facility] [phone] CT Scan ReportSigned Patient: Emilee Rivera SDOB:
--- NOTE | 2021-08-07 16:55 | WPDANESEPP ---
Anes - Eval Pre Procedure Procedure: cysto special Date/Time: 08/07/21 16:55 Surgeon: leeanne Preop Diagnosis: left ureteral stone Pre Op Diagnosis: kidney stone? Patient Data Age: 36 Gender: F Height: 1.6 m Weight: 70.45 kg Last Vital Signs Temp 38.2 C H 08/07/21 13:50 Pulse 91 08/07/21 16:30 Resp 19 08/07/21 16:30 BP 137/79 08/07/21 13:50 Pulse Ox 98 08/07/21 16:30 Allergies Allergy/AdvReac Type Severity Reaction Status Date / Time talc Allergy Intermediate RASH, Verified 08/07/21 13:53 ITCHING BABY POWDER Home Medications Medication Instructions Recorded Confirmed Type No Home Medications 08/07/21 08/07/21 History Laboratory Tests 08/07/21 08/07/21 08/07/21 15:23 15:23 15:25 WBC 12.2 K/mm3 H K/mm3 (4.5-10.0) RBC 4.17 M/mm3 L M/mm3 (4.2-5.4) Hgb 13.4 g/dL g/dL (12.0-15.0) Hct 40.6 % % (37.0-47.0) MCV 97.4 fl fl (80-100) MCH 32.1 pg pg (26-34) MCHC 33.0 g/dl g/dl (32-36) RDW 12.9 % % (11.5-14.5) Plt Count 206 k/mm3 k/mm3 (150-375) MPV 9.3 fl fl (7.4-10.4) Immature Gran % (Auto) 0.5 % % (0-0.5) Neut % (Auto) 75.1 % H % (45.5-73.1) Lymph % (Auto) 13.0 % L % (18.3-44.2) [place] % (Auto) 11.0 % H % (2.6-8.5) Eos % (Auto) 0.1 % % (0-4.4) Baso % (Auto) 0.3 % % (0.2-1.2) Lymph # (Auto) 1.59 K/mm3 K/mm3 (0.9-3.2) [place] # (Auto) 1.4 K/mm3 H K/mm3 (0.1-0.6) Eos # (Auto) 0.0 K/mm3 K/mm3 (0-0.3) Baso # (Auto) 0.0 K/mm3 K/mm3 (0.0-0.1) Abs Immat Gran (auto) 0.06 K/mm3 H K/mm3 (0.00-0.031) Absolute Neuts (auto) 9.2 K/mm3 H K/mm3 (1.3-6.7) Absolute Nucleated RBC 0.0 K/mm3 K/mm3 (0.0-0.012) Nucleated RBC % 0.0 % % (0.0-0.2) Sodium 136 mmol/L L mmol/L (137-145) Potassium 4.3 mmol/L mmol/L (3.4-5.0) Chloride 102 mmol/L mmol/L (98-107) Carbon Dioxide 27 mmol/L mmol/L (22-30) Anion Gap 7 mmol/L L mmol/L (8-16) BUN 9 mg/dL D mg/dL (7-17) Creatinine 0.90 mg/dL mg/dL (0.7-1.0) Estim Creat Clear Calc 73 ml/min ml/min Estimated GFR > 60 (59 - ) Glucose 99 mg/dL mg/dL (65-110) Calcium 8.5 mg/dL mg/dL (8.4-10.2) Total Bilirubin 0.8 mg/dL mg/dL (0.2-1.3) AST 46 U/L H U/L (14-36) ALT 31 U/L U/L (4-35) Alkaline Phosphatase 56 U/L U/L (38-126) Total Protein 7.0 g/dL g/dL (6.3-8.2) Albumin 3.7 g/dL g/dL (3.5-5.1) Urine Color Yellow (Yellow) Urine Appearance Cloudy H (Clear) Urine pH 7.0 (5.0-9.0) Ur Specific [place] 1.014 (1.001-1.035) Urine Protein 1+ mg/dL H mg/dL (Negative) Urine Glucose (UA) Negative mg/dL mg/dL (Negative) Urine Ketones Negative mg/dL mg/dL (Negative) Ur Blood (Man) 2+ H (Negative) Urine Nitrate Negative (Negative) Urine Bilirubin Negative (Negative) Urine Urobilinogen Negative mg/dL mg/dL (<2.0) Leukocyte Esterase Rfl 3+ BARBIE/UL H BARBIE/UL (Negative) Urine RBC >75 /hpf H /hpf (0-2) Urine WBC >75 /hpf H /hpf Urine WBC Clumps Present /HPF H /HPF (None) Ur Squamous Epith Cells Few /hpf /hpf (Few) Amorphous Sediment Few H (None) Urine Bacteria Trace /hpf /hpf Urine Mucus Rare /lpf /lpf Urine Test Cancelled Patient hx anesthesia problems: none Family hx anesthesia problems: none Results Review: All pre-operative results and documents have been reviewed as part of the pre-operative evaluation. [facility] Past Medical History Medical History (Updated
[2021-08-07] MEDS: LACTATED RINGERS 1,000 ML 30 ML IV CONT (17:00)
--- NOTE | 2021-08-07 17:19 | PC.NURSE ---
OR team here to take patient to the OR at this time. All of patient's belongings sent with patient in patient belonging bag.
[2021-08-07] MEDS: LIDOCAINE HCL 2% GEL UROJET 10 ML PKG MUCOUS MEM (17:39)
--- NOTE | 2021-08-07 17:53 | P.OP_ITS ---
Procedure Note - Detailed Date of Procedure 08/07/21 Pre-op Diagnosis Left ureteral stone, urinary tract infection Post-op Diagnosis same Procedure Performed Cystoscopy, left retrograde pyelogram, left ureteral stent insertion, stone sanjeev cori from bladder Surgeon Abdiel Everett MD Anesthesia MAC Description of Procedure Informed consents obtained. Patient taken the operating. She was given preoperative IV antibiotics in the emergency department. She was induced with anesthesia. She was placed in dorsal lithotomy position. We inserted a 22 F rigid cystoscope through urethra into the bladder inspected the bladder and 2 small stones were identified at the trigone adjacent to the left ureteral orifice and these were evacuated and sent as specimen. The bladder had irritation consistent with her known infection, there were no tumors. Patient had orthotopic bilateral ureteral orifices. We then cannulated the left ureteral orifice and performed retrograde pyelogram showing mild hydroureteronephrosis. Over a wire a 6 F variable length stent was placed with a curl in the renal pelvis and curl the bladder. The bladder was emptied Underwood catheter. The patient was awakened and taken to recovery room stable condition Drains No Packing No Pathology yes Complications No immediate complications Condition stable Disposition PACU
--- NOTE | 2021-08-07 18:30 | PM.IMHP ---
H&P: HPI History of Present Illness Date/Time: 08/07/21 18:30 Chief Complaint: Left flank pain. Narrative: This is a pleasant 36-year-old female with history of kidney stones who presented to the emergency department via private vehicle from home for evaluation of left flank pain. She developed vague discomfort in the left lower back about 5 days ago and since that time she has had intermittent but worsening colicky pain in the left flank. This pain is similar to the pain she has experienced with previous kidney stones. She has not noticed any significant aggravating or alleviating and in fact she has not required analgesics as of yet. Additionally over the past 2 days she has had generalized malaise with nausea and some lightheadedness. She has not had dysuria or obvious hematuria though she was just recently on her menstrual cycle. CT of the abdomen and pelvis today showed an obstructing left UPJ stone and she is currently awaiting transport to OR for cystoscopy per Dr. Everett. She had a low-grade fever on arrival to the ER today but she has not had a fever at home to her knowledge though she does endorse pretty significant sweats. Review of Systems Review of Systems: Twelve systems were reviewed. No recent cold or flu symptoms. No sick contacts. No chest pain or pleuritic pain. Except as documented, all other systems were reviewed and are negative. [facility] Past Medical History Medical History (Updated 08/07/21 @ 20:21 by Lou Bates PA-C) History of kidney stones Renal calculus, bilateral Surgical History Surgical History (Updated 08/07/21 @ 20:16 by Lou Bates PA-C) History of 3 sections History of appendectomy History of cholecystectomy History of cystoscopy History of dilation and curettage History of lithotripsy History of tubal ligation Family History Family History Other Acute myocardial infarction Degenerative disorder of bone Diabetes mellitus Hypertension Social History Social History (Updated 08/07/21 @ 20:17 by Lou Bates PA-C) Social History: Surrogate decision maker:Chiqui Broussard, mother. Code status: Full code. Smoking status: Former smoker Alcohol intake: never Substance use: never Meds Home Medications and Allergies Home Medications Medication Instructions Recorded Confirmed Type No Home Medications 08/07/21 08/07/21 History Allergies Allergy/AdvReac Type Severity Reaction Status Date / Time talc Allergy Intermediate RASH, Verified 08/07/21 13:53 ITCHING BABY POWDER Vital Signs Vital Signs - 24 hr 08/07/21 13:50 08/07/21 16:00 08/07/21 16:15 Temperature 100.8 F H Pulse Rate 108 H 100 98 Respiratory Rate 18 25 H 23 H Blood Pressure 137/79 Pulse Oximetry 99 99 98 08/07/21 16:30 08/07/21 16:52 08/07/21 17:57 Temperature 98.1 F Pulse Rate 91 88 89 Respiratory Rate 19 14 20 Blood Pressure 112/81 101/63 Pulse Oximetry 98 99 100 08/07/21 18:15 08/07/21 18:30 08/07/21 18:46 Temperature Pulse Rate 91 77 69 Respiratory Rate 22 H 16 15 Blood Pressure 106/71 100/68 110/74 Pulse Oximetry 100 99 99 Exam Narrative: General: Well-developed, nontoxic-appearing female sitting up in bed. Weight: 70.45 kg. BMI: 27.5. HEENT: PERRL, EOMI. Sclerae anicteric. Tacky mucous membranes. Neck: Supple. Respiratory: Lungs are clear to auscultation bilaterally. Cardiovascular: Regular rate and rhythm with S1-S2. Gastrointestinal: Abdomen is soft and nondistended with positive bowel sounds. She is tender to palpation in the left flank. No CVA tenderness. Skin: Warm and dry. No rash or lesions on limited exam. Extremities: No cyanosis, clubbing, or edema. Radial and pedal pulses intact. Neurological: Alert. Cranial nerves 2-12 are grossly intact. o gross focal deficits to casual conversation. Psychiatric: Pleasant and cooperative wi
[2021-08-07 19:16] LABS: Basophils Absolute Auto 0.1 K/mm3 (0.0-0.1); Basophils Percent Auto 0.5 % (0.2-1.2); Eosinophils Percent Auto 0.2 % (0-4.4); Hematocrit 38.5 % (37.0-47.0); Hemoglobin 12.6 g/dL (12.0-15.0); Immature Granulocyte Absolute 0.05 K/mm3 (0.00-0.031); Immature Granulocyte Percent A 0.4 % (0-0.5); Lymphocytes Absolute Auto 1.22 K/mm3 (0.9-3.2); Lymphocytes Percent Auto 9.4 % (18.3-44.2); Mean Corpuscular HGB Conc 32.7 g/dl (32-36); Mean Corpuscular Hemoglobin 32.1 pg (26-34); Mean Platelet Volume 9.6 fl (7.4-10.4); Monocytes Absolute Auto 0.9 K/mm3 (0.1-0.6); Monocytes Percent Auto 6.7 % (2.6-8.5); Neutrophils Absolute Auto 10.7 K/mm3 (1.3-6.7); Neutrophils Percent Auto 82.8 % (45.5-73.1); Platelet Count Result 201 k/mm3 (150-375); Red Blood Count 3.93 M/mm3 (4.2-5.4); Red Cell Distribution Width 12.7 % (11.5-14.5)
[2021-08-07] MEDS: HYOSCYAMINE SULFATE 0.125 MG TABLET SUBLINGUAL (23:28)
[2021-08-08] VITALS (8 sets, daily range): BP systolic 101–131; BP diastolic 45–92; PULSE 56–90; RESP 16–18; TEMP 36.4–36.8; O2SAT 97–100; BMI 29.8
[2021-08-08] MEDS: HYDROcodone/acetaminophen (*CRX) 5-325 MG TABLET 1 TAB PO ×3 (00:37→21:26)
--- NOTE | 2021-08-08 02:00 | ADMGEN ---
This patient, Emilee Rivera, was admitted to Medical Room 261-01. Patient/family oriented to hospital policies and general routines including ID bracelet, bed and alarms, visiting hours, pain management, procedures, bathroom and other care routines, personal items, smoking policy, room service/diet, and visiting hours. Information on how to activate the Rapid Response Team has been discussed. Patient/Family are encouraged to report perceived risks to care and to ask questions if they do not understand what they are told or what they should do.
[2021-08-08 05:46] LABS: Hemoglobin 12.7 g/dL (12.0-15.0); Mean Corpuscular HGB Conc 32.6 g/dl (32-36); Mean Corpuscular Hemoglobin 32.6 pg (26-34); Mean Corpuscular Volume 100.3 fl (80-100); Mean Platelet Volume 9.8 fl (7.4-10.4); Platelet Count Result 214 k/mm3 (150-375); Red Blood Count 3.89 M/mm3 (4.2-5.4); Red Cell Distribution Width 12.9 % (11.5-14.5); White Blood Count 9.6 K/mm3 (4.5-10.0)
[2021-08-08 05:49] LABS: Anion Gap 6 mmol/L (8-16); Blood Urea Nitrogen 14 mg/dL (7-17); Calcium 8.4 mg/dL (8.4-10.2); Carbon Dioxide 25 mmol/L (22-30); Chloride 106 mmol/L (98-107); Estimated CRCL calculation 76 ml/min; Estimated Glomerular Filt Rate > 60; Glucose 138 mg/dL (65-110); Magnesium 2.3 mg/dL (1.6-2.3); Potassium 4.9 mmol/L (3.4-5.0); Sodium 137 mmol/L (137-145)
--- NOTE | 2021-08-08 08:30 | WPDUROPN2 ---
Progress Note: A&P Assessment and Plan (1) Urinary tract infection: Code(s): N39.0 - Urinary tract infection, site not specified Status: Acute Assessment and Plan: continue IV broad spectrum antibiotics, await culture (2) Calculus of left ureter: Code(s): N20.1 - Calculus of ureter Status: Acute Assessment and Plan: POD#1 s/p ureter stent placement. esparza removed outpt stone treatment when infection has been treated Subjective Subjective Date/Time Seen: 08/08/21 08:30 Pian improved, no fevers. no n/v/. + cold sweats. esparza removed this am. Review of Systems Review of Systems: All systems reviewed & are unremarkable except as noted in HPI and below Constitutional: Constitutional: Reports as per HPI Cardiovascular: Cardiovascular: Denies dyspnea Respiratory: Respiratory: Denies pain on inspiration and Denies dyspnea on exertion Gastrointestinal: Gastrointestinal: Denies abdominal pain Genitourinary: Genitourinary: Reports as per HPI and Denies hematuria Exam Const: General: cooperative, healthy appearing and comfortable HENMT: Head: normal to inspection Ears: hearing grossly normal bilaterally Resp: Effort & Inspection: normal respiratory effort, able to speak in complete sentences and no audible wheezes GI: Inspection: normal to inspection Skin: General skin exam: normal color and no rashes or lesions noted Neuro: General: oriented to person, oriented to place and oriented to time Objective Data Vital Signs Vital Signs: Vital Signs - 24 hr 08/07/21 13:50 08/07/21 16:00 08/07/21 16:15 Temperature 38.2 C H Pulse Rate 108 H 100 98 Respiratory Rate 18 25 H 23 H Blood Pressure 137/79 Pulse Oximetry 99 99 98 08/07/21 16:30 08/07/21 16:52 08/07/21 17:57 Temperature 36.7 C Pulse Rate 91 88 89 Respiratory Rate 19 14 20 Blood Pressure 112/81 101/63 Pulse Oximetry 98 99 100 08/07/21 18:15 08/07/21 18:30 08/07/21 18:46 Temperature Pulse Rate 91 77 69 Respiratory Rate 22 H 16 15 Blood Pressure 106/71 100/68 110/74 Pulse Oximetry 100 99 99 08/07/21 20:42 08/07/21 23:09 08/08/21 01:26 Temperature 36.6 C 36.4 C 36.6 C Pulse Rate 70 62 56 L Respiratory Rate 14 16 16 Blood Pressure 97/54 L 108/67 104/64 Pulse Oximetry 97 98 97 08/08/21 06:00 Temperature 36.8 C Pulse Rate 60 Respiratory Rate 16 Blood Pressure 101/45 L Pulse Oximetry 100 Intake/Output Intake/Output: Intake & Output 08/05/21 08/06/21 08/07/21 08/08/21 23:59 23:59 23:59 23:59 Intake Total 500 500 Output Total 200 Balance 500 300 Meds/Results Medications: Active Medications Generic Name Dose Route Start Last Admin Trade Name Freq PRN Reason Stop Dose Admin Acetaminophen 650 mg 08/08/21 07:14 Acetaminophen 325 Mg Tablet PO Q4H PRN Pain rated 1-3 Hydrocodone Bitart/Acetaminophen 1 tab 08/08/21 07:14 Hydrocodone/Acetaminophen (*Crx) 5-325 Mg Tablet PO Q4H PRN Pain Rated 4-6 Docusate Sodium 100 mg 08/08/21 09:00 Docusate Sodium 100 Mg Capsule PO BID ZAHEER Hyoscyamine 0.125 mg 08/07/21 18:56 08/07/21 23:28 Hyoscyamine Sulfate 0.125 Mg Tablet SUBLINGUAL 0.125 mg Q6H PRN Administration Bladder Spasm Dextrose/Lactated Ringer's 1,000 mls @ 125 mls/hr 08/07/21 18:56 Dextrose 5%/Lactated Ringers IV CONT .Q8H ZAHEER Ceftriaxone Sodium/Dextrose 1 gm in 50 mls @ 100 mls/hr 08/08/21 18:00 Rocephin 1 Gm/D5w 50 Ml IVPB QPM ZAHEER Morphine Sulfate 2 mg 08/07/21 18:56 Morphine Sulfate (*Crx) 2 Mg/Ml Inj IV PUSH Q2H PRN Pain Rated 7-10 Naloxone HCl 0.1 mg 08/07/21 18:56 Naloxone Hcl 0.4 Mg/Ml Vial IV PUSH Q2M PRN Opiate Reversal Ondansetron HCl 4 mg 08/07/21 18:56 Ondansetron Inj 4 Mg/2 Ml Vial IV PUSH Q12H PRN Nausea And Vomiting Radiology Results: ITS Impressions Abdomen/Pelvis CT 08/07/21 15:45 IMPRESSION: 1. Left UV
--- NOTE | 2021-08-08 09:22 | PM.IMPN ---
Progress Note: A&P Assessment and Plan (1) Urinary tract infection: Code(s): N39.0 - Urinary tract infection, site not specified Status: Acute Assessment and Plan: UA grossly abnormal on presentation Urine culture pending Continue IV ceftriaxone while awaiting susceptibility report. Tailor antibiotics to urine culture Low-grade fever 100.8 yesterday afternoon. Remaining afebrile today. Mild leukocytosis has resolved (2) Obstruction of left ureteropelvic junction due to stone: Code(s): N20.1 - Calculus of ureter Status: Acute Assessment and Plan: CT abdomen/pelvis showed 5 mm left UVJ stone with another 2 mm stone just proximal to this with mild obstructive nephropathy She underwent cystoscopy with left ureteral stent placement and stone removal from bladder on 08/07/21 She tolerated the procedure well. Supportive care Analgesics available as needed for pain Appreciate urology consultation (3) Bilateral nephrolithiasis: Code(s): N20.0 - Calculus of kidney Status: Acute Assessment and Plan: Evident on CT abdomen/pelvis Continue with outpatient urology follow-up Subjective Date/time seen: 08/08/21 09:22 Interval history: Date of service: 08/08/2021 Emilee Rivera is a 36-year-old female with a history of kidney stones who is seen in follow-up for left UPJ stone and urinary tract infection. She is feeling okay today. She does endorse left flank and groin pain that she rates as 7/10. She had her [place] removed this morning and was able to urinate immediately following. She denies dysuria but she did have some bladder spasms and discomfort from the stent. No hematuria. Denies back pain or abdominal pain. She denies fever or chills but notes that last night she had some cold sweats. Denies nausea or vomiting. She was able to tolerate her breakfast. No shortness breath, cough, chest pain. Review of Systems Review of Systems: All systems reviewed & are unremarkable except as noted in HPI and below Exam Narrative: Ms. Rivera is a well-nourished, well-appearing 36-year-old female who is lying semi recumbent in bed. She appears comfortable and is in NARD. Neuro: awake, alert and oriented x4, speech clear, no focal neuro deficits noted HEENMT: normocephalic, atraumatic, EOMI, sclerae anicteric Neck: supple, no lymphadenopathy Respiratory: clear to auscultation bilaterally, nonlabored breathing Cardio: regular rate, regular rhythm with S1-S2 Abdomen: nondistended, normoactive bowel sounds, soft, nontender to palpation : left groin and flank tenderness, no CVA tenderness Extremities: no edema, erythema, or tenderness to palpation, DP pulses 2+ bilaterally Skin: no rashes or lesions, warm and dry Psych: appropriate mood and affect, judgment and insight intact Objective Data Vital Signs Vital Signs: Vital Signs - 24 hr 08/07/21 13:50 08/07/21 16:00 08/07/21 16:15 Temperature 100.8 F H Pulse Rate 108 H 100 98 Respiratory Rate 18 25 H 23 H Blood Pressure 137/79 Pulse Oximetry 99 99 98 08/07/21 16:30 08/07/21 16:52 08/07/21 17:57 Temperature 98.1 F Pulse Rate 91 88 89 Respiratory Rate 19 14 20 Blood Pressure 112/81 101/63 Pulse Oximetry 98 99 100 08/07/21 18:15 08/07/21 18:30 08/07/21 18:46 Temperature Pulse Rate 91 77 69 Respiratory Rate 22 H 16 15 Blood Pressure 106/71 100/68 110/74 Pulse Oximetry 100 99 99 08/07/21 20:42 08/07/21 23:09 08/08/21 01:26 Temperature 97.9 F 97.6 F 97.9 F Pulse Rate 70 62 56 L Respiratory Rate 14 16 16 Blood Pressure 97/54 L 108/67 104/64 Pulse Oximetry 97 98 97 08/08/21 06:00 08/08/21 08:00 Temperature 98.2 F 98.0 F Pulse Rate 60 56 L Respiratory Rate 16 16 Blood Pressure 101/45 L 108/66 Pulse Oximetry 100 98 Intake/Output Intake/Output: Intake & Output 08/05/21 08/06/21 08/07/21 08/08/21 23:59 23:59 23:59 23:59 Intake Total 500 640 Output Total
[2021-08-08] MEDS: DOCUSATE SODIUM 100 MG CAPSULE PO ×2 (09:33→19:22)
[2021-08-08] MEDS: ACETAMINOPHEN 325 MG TABLET 650 MG PO (09:35)
[2021-08-09] MEDS: HYDROcodone/acetaminophen (*CRX) 5-325 MG TABLET 1 TAB PO (03:22)
[2021-08-09 06:00] VITALS: BP 109/68; PULSE 60; RESP 12; TEMP 36.4; O2SAT 98
[2021-08-09] MEDS: DOCUSATE SODIUM 100 MG CAPSULE PO (09:47)
[2021-08-09] MEDS: ACETAMINOPHEN 325 MG TABLET 650 MG PO (09:49)
--- NOTE | 2021-08-09 10:48 | WPDURCON ---
Assessment and Plan Assessment and plan (1) Urinary tract infection: Code(s): N39.0 - Urinary tract infection, site not specified Status: Acute Assessment and Plan: culture with staph saprophyticus -finish 1 week course of abx, for complicated UTI -ok to dc from [facility] perspective (2) Calculus of left ureter: Code(s): N20.1 - Calculus of ureter Status: Acute Assessment and Plan: POD#2 s/p ureter stent placement. outpt stone treatment when infection has been treated -f/u with Dr Solitario for defintive stone management -I discussed and emphasized the temporary nature of the sten t and need for removal , she voiced understanding Urology Consult Note HPI Date Seen: 08/09/21 Requesting Physician: Holley Erazo PA-C Primary Care Provider: Rupa Richardson, Consult Narrative Narrative: Emilee Rivera is a 36 year old female -NAEO, doing well, pain controlled, no F/C/N/V. Review of Systems Review of Systems: All systems reviewed & are unremarkable except as noted in HPI and below Constitutional: Constitutional: Reports as per HPI Cardiovascular: Cardiovascular: Denies dyspnea and Denies dyspnea on exertion Respiratory: Respiratory: Denies pain on inspiration, Denies dyspnea and Denies dyspnea on exertion Gastrointestinal: Gastrointestinal: Denies abdominal pain Genitourinary: Genitourinary: Reports as per HPI and Denies hematuria PMFSH Past Medical History Medical History (Updated 08/07/21 @ 20:21 by Lou Bates PA-C) History of kidney stones Renal calculus, bilateral Surgical History Surgical History (Updated 08/07/21 @ 20:16 by Lou Bates PA-C) History of 3 sections History of appendectomy History of cholecystectomy History of cystoscopy History of dilation and curettage History of lithotripsy History of tubal ligation Family History Family History Other Acute myocardial infarction Degenerative disorder of bone Diabetes mellitus Hypertension Social History Social History (Updated 08/07/21 @ 20:17 by Lou Bates PA-C) Social History: Surrogate decision maker:Chiqui Broussard, mother. Code status: Full code. Years smoked: 25 Smoking status: Light tobacco smoker Alcohol intake: never Drinks per week: 0 Substance use: never Substance use type: does not use Spiritual care concerns: No Meds Home Medications and Allergies Home Medications Medication Instructions Recorded Confirmed Type No Home Medications 08/07/21 08/07/21 History Allergies Allergy/AdvReac Type Severity Reaction Status Date / Time talc Allergy Intermediate RASH, Verified 08/07/21 13:53 ITCHING BABY POWDER Vital Signs Vital Signs - 24 hr 08/08/21 11:04 08/08/21 12:00 08/08/21 14:00 Temperature 36.6 C 36.4 C Pulse Rate 61 63 Respiratory Rate 18 16 Blood Pressure 111/69 112/71 Pulse Oximetry 99 99 100 08/08/21 16:14 08/08/21 20:00 08/09/21 06:00 Temperature 36.7 C 36.4 C 36.4 C Pulse Rate 90 72 60 Respiratory Rate 18 18 12 Blood Pressure 130/83 131/92 H 109/68 Pulse Oximetry 100 100 98 Exam Const: General: cooperative, healthy appearing and comfortable Orientation/consciousness: oriented to person, oriented to place and oriented to time HENMT: Head: normal to inspection Ears: hearing grossly normal bilaterally Resp: Effort & Inspection: normal respiratory effort, able to speak in complete sentences and no audible wheezes GI: Inspection: normal to inspection Skin: General skin exam: normal color and no rashes or lesions noted Neuro: General: oriented to person, oriented to place and oriented to time Results Labs CBC & Chem 7: 08/08/21 05:25 08/08/21 05:25 Quality VTE Prophylaxis VTE prophylaxis: mechanical ordered
[2021-08-09 10:49] VITALS: TEMP 36.4
--- NOTE | 2021-08-09 12:05 | PM.DS ---
DS: Admitting Diagnosis Discharge Date 08/09/2021 Admitting Diagnosis Left ureteral stone DS: Discharge Diagnosis Discharge Diagnosis (1) Urinary tract infection: Code(s): N39.0 - Urinary tract infection, site not specified Status: Acute Assessment and Plan: UA grossly abnormal on presentation. She had low-grade fever 100.8 which resolved and she remained afebrile >36 hours. She was started on IV ceftriaxone while awaiting cultures. Leukocytosis resolved. Urine culture with growth of >100k Staphylococcus saprophyticus with routine susceptibility testing not performed given susceptibility to common agents including fluoroquinolones. She will complete 7 days of p.o. ciprofloxacin as an outpatient and follow-up with urology. (2) Obstruction of left ureteropelvic junction due to stone: Code(s): N20.1 - Calculus of ureter Status: Acute Assessment and Plan: CT abdomen/pelvis showed 5 mm left UVJ stone with another 2 mm stone just proximal to this with mild obstructive nephropathy. She underwent cystoscopy with left ureteral stent placement and stone removal from bladder on 08/07/21. She tolerated the procedure well. Supportive care provided. Short course of analgesics given on discharge and hyoscyamine as needed for bladder spasm. She understands that she will need to have outpatient urology follow-up for stent removal and definitive stone management. (3) Bilateral nephrolithiasis: Code(s): N20.0 - Calculus of kidney Status: Acute Assessment and Plan: Evident on CT abdomen/pelvis. Continue with outpatient urology follow-up DS: Summary Hospital Course Hospital Course: Date of admission: 08/07/2021 Date of discharge: 08/09/2021 Emilee Rivera is a 36-year-old female with a history of kidney stones who presented to the emergency department on 08/07/2021 with complaints of left flank pain and 2 days of nausea and general malaise. On presentation to the emergency department, she was febrile at 100.8?, additional vital signs stable, WBC [id number], additional CBC and BMP unremarkable, CT abdomen/pelvis showed left UVJ 5 mm stone with another 2 mm stone just proximal with mild obstructive nephropathy and bilateral nephrolithiasis. She was admitted to the hospitalist service for further evaluation management and was seen in consultation by Urology. Please see above for further details. She had a stent placed and will follow-up for definitive stone management. She was treated with IV antibiotics for urinary tract infection she will continue with oral Cipro for 1 week on discharge. She began feeling much better and requested discharge home. Given her overall improvement, she was determined to no longer require inpatient care and was felt to be stable for discharge. Discussed with urology who was in agreement with plans for discharge. I discussed with the patient worrisome signs and symptoms for which to return and she was educated on her medications. She was discharged in hemodynamically stable condition on 08/09/2021 Status at Discharge Functional status at discharge: independent ambulation Overall status at discharge: patient is progressing back to baseline Time Spent with Patient Time attestation: Total time spent providing and/or coordinating discharge services: 40 minutes Time spent: Greater than 30 minutes Exam Narrative: Ms. Rivera is a well-nourished, well-appearing 36-year-old female who is lying semi recumbent in bed. She appears comfortable and is in NARD. Neuro: awake, alert and oriented x4, speech clear, no focal neuro deficits noted HEENMT: normocephalic, atraumatic, EOMI, sclerae anicteric Neck: supple, no lymphadenopathy Respiratory: clear to auscultation bilaterally, nonlabored breathing Cardio: regular rate, regular rhythm with S1-S2 Abdomen: nondistended, normoactive bowel sounds, soft, nontender to palpation : no CVA tenderness Extremities: no edema
== END 2021-08-09 14:05 | disposition home or self-care (01) ==
LOC: ANHED 16:39 → ANH2MED 17:26
PROVIDERS: Physician Assistant; Urology; Admitting Provider Internal Medicine; Emergency Provider Emergency Medicine; PCP Family Medicine; Visit Provider Internal Medicine
PROC: (CPT 52352; principal; 2021-08-07 17:30)
DX: N13.2 Hydronephrosis with renal and ureteral calculous obstruction (principal); N39.0 Urinary tract infection, site not specified; N21.0 Calculus in bladder; B95.7 Other staphylococcus as the cause of diseases classified elsewhere; Z72.0 Tobacco use
CPT/HCPCS: 52332; 36415; 74176; 74420; 80048; 80053; 81001; 81025; 82365; 83735; 85025; 85027; 87077; 87086; 87088; 88300; 96361; 96365; 96375; 96376; 99285; A9270; C1769; C1887; C2617; G0378; J0696; J1100; J1885; J2250; J2270; J2370; J2405; J2704; J3010; J7120; Q9966

== ENCOUNTER 2021-10-07 19:26 | Emergency (ER) | payer OTHER, MEDICAID, SELFPAY ==
--- NOTE | ~2021-10-07 | CT_ITS ---
EXAMINATION: CT abdomen pelvis wo con EXAM DATE: 10/07/2021 22:34 INDICATION: L flank pain groin pain, nausea, recent uretal stent place. TECHNIQUE: Spiral CT of the abdomen and pelvis was performed without contrast. Axial, coronal and sag ittal images were reviewed. The dose-length product (DLP) for this examination was 446.96 mGy-cm. T he exposure was tailored according to patient size (auto mA exposure control), and iterative reconstr uction (ASIR) was used as additional dose reduction technique. Comparison is made to prior examinatio n from 08/07/2021. FINDINGS: Left-sided double-J ureteral stent is in position. There is mild left hydroureteronephrosis . No definite calcifications seen along the course of the stent. There are 2 small left calyceal ston es up to 3 mm in size. Right inferior calyceal 7 mm stone, additional punctate inferior calyceal ston es. The uterus is anteverted and morphologically normal. The bladder is unremarkable. The liver, spleen, adrenal glands and pancreas are unremarkable. Gallbladder is unremarkable. No biliary obstr uction. There is no retroperitoneal or pelvic lymphadenopathy. The appendix is not positively visualized. There is no pericecal inflammatory change to suggest appe ndicitis. The stomach and small bowel are unremarkable. There is expected amount of colonic stool. No free intraperitoneal gas. The heart is normal in size. There are no pericardial or pleural e ffusions. The lung bases are unremarkable. There are no osteoblastic or osteolytic lesions identifi ed. IMPRESSION: 1. Mild left hydronephrosis. Ureteral stent in position. 2. Bilateral nephrolithiasis. Reviewed, dictated and finalized at location G.
[2021-10-07 20:18] VITALS: BP 128/85; PULSE 93; RESP 18; TEMP 36.8; O2SAT 100
[2021-10-07 21:56] VITALS: BP 129/88; PULSE 90; RESP 16; TEMP 36.6; O2SAT 100
--- NOTE | 2021-10-07 22:24 | ED.ABDPAIN ---
HPI - Abdominal Pain General Chief Complaint: Urogenital-Female Stated Complaint: painful urinary stent/ issues Time Seen by Provider: 10/07/21 21:49 Source: patient Mode of arrival: ambulatory Limitations: no limitations History of Present Illness HPI narrative: Patient is a 36-year-old female complaining of left flank pain, sharp, 8 out of 10, radiating to left groin started 3 days ago. Patient states that she was diagnosed with a kidney stone a month ago, had a stent placed. Patient states that her urologist wanted to have repeat CT scan done but due to insurance issues has not been done yet. Patient denies any chest pain, abdominal pain, nausea, vomiting, diarrhea, urinary symptoms, fever or chills. Related Data Allergies Allergy/AdvReac Type Severity Reaction Status Date / Time talc Allergy Intermediate RASH, Verified 08/07/21 13:53 ITCHING BABY POWDER Review of Systems Review of Systems: All systems reviewed & are unremarkable except as noted in HPI and below Constitutional: Constitutional: Denies body ache(s), Denies chills, Denies excessive sweating, Denies fatigue, Denies fever(s), Denies headache(s), Denies lethargy, Denies malaise, Denies weakness and Denies weight loss Eyes: Eyes: Denies blurry vision, Denies change in vision and Denies loss of vision ENT: Denies dizziness, Denies ear discharge, Denies headache(s), Denies lip swelling, Denies epistaxis, Denies nasal congestion, Denies neck pain, Denies throat swelling and Denies tongue swelling Cardiovascular: Cardiovascular: Denies chest pain, Denies chest pain at rest, Denies chest pain with activity, Denies diaphoresis, Denies rapid heart rate, Denies edema, Denies irregular heart rhythm, Denies lightheadedness, Denies palpitations, Denies dyspnea and Denies dyspnea on exertion Respiratory: Respiratory: Denies chest congestion, Denies cough, Denies hemoptysis, Denies dyspnea and Denies dyspnea on exertion Gastrointestinal: Gastrointestinal: Denies abdominal pain, Denies melena, Denies hematochezia, Denies diarrhea, Reports nausea, Denies vomiting and Denies hematemesis Musculoskeletal: Musculoskeletal: Denies abnormal gait, Denies deformity, Denies joint swelling, Denies limited range of motion, Denies neck pain and Denies numbness Neurologic: Denies Abnormal speech present, Denies abnormal gait, Denies confusion, Denies dizziness, Denies headache(s), Denies focal weakness, Denies loss of vision, Denies numbness, Denies Other visual disturbances, Denies Sensory deficit (Neuro) and Denies weakness Psychiatric: Psychiatric: Denies confusion, Denies depression, Denies auditory hallucinations, Denies homicidal ideation and Denies suicidal ideation Endocrine: Endocrine: Denies cold intolerance, Denies excessive sweating, Denies fatigue, Denies heat intolerance and Denies palpitations Hematologic/Lymphatic: Hematologic/Lymphatic: Denies easy bleeding and Denies easy bruising Allergic/Immunologic: Allergic/Immunologic: Denies lip swelling, Denies throat swelling and Denies tongue swelling PMFSH Past Medical History Medical History History of kidney stones Renal calculus, bilateral Surgical History Surgical History History of 3 sections History of appendectomy History of cholecystectomy History of cystoscopy History of dilation and curettage History of lithotripsy History of tubal ligation Family History Family History Other Acute myocardial infarction Degenerative disorder of bone Diabetes mellitus Hypertension Social History Social History Social History: Surrogate decision maker:Chiqui Broussard, mother. Code status: Full code. Years smoked: 25 Smoking status: Light tobacco smoker Alcohol intake: nev
[2021-10-07 22:48] LABS: Add Urine Microscopic? YES; Appearance Urine Cloudy (Clear); Bacteria Urine Trace /hpf; Bilirubin Urine Negative (Negative); Blood Urine Negative (Negative); Color Urine Yellow (Yellow); Glucose Urine UA Negative (Negative); Ketones Urine Negative (Negative); Leukocyte Esterase Ur 2+ LEU/UL (Negative); Mucus Urine Heavy /lpf; Nitrate Urine Negative (Negative); Protein Urine Negative (Negative); Specific Grav Ur 1.025 (1.001-1.035); Squamous Epithelial Cell Urine Many /hpf (Few); Urobilinogen Urine Negative mg/dL (<2.0); WBC Urine 16-20 /hpf
[2021-10-07] MEDS: SODIUM CHLORIDE 0.9% IV 1,000 ML 999 ML IV CONT (22:51)
[2021-10-07] MEDS: PROMETHAZINE HCL 25 MG/ML AMPUL 12.5 MG IV PUSH (22:52)
[2021-10-07] MEDS: KETOROLAC 30 MG/ML VIAL (*BKC) IV PUSH (22:52)
[2021-10-07 23:12] LABS: Basophils Absolute Auto 0.1 K/mm3 (0.0-0.1); Basophils Percent Auto 0.7 % (0.2-1.2); Eosinophils Absolute Auto 0.1 K/mm3 (0-0.3); Eosinophils Percent Auto 0.8 % (0-4.4); Hematocrit 40.3 % (37.0-47.0); Hemoglobin 12.8 g/dL (12.0-15.0); Immature Granulocyte Absolute 0.04 K/mm3 (0.00-0.031); Immature Granulocyte Percent A 0.4 % (0-0.5); Lymphocytes Absolute Auto 3.15 K/mm3 (0.9-3.2); Lymphocytes Percent Auto 29.3 % (18.3-44.2); Mean Corpuscular HGB Conc 31.8 g/dl (32-36); Mean Corpuscular Hemoglobin 31.1 pg (26-34); Mean Corpuscular Volume 98.1 fl (80-100); Mean Platelet Volume 9.3 fl (7.4-10.4); Monocytes Absolute Auto 0.9 K/mm3 (0.1-0.6); Monocytes Percent Auto 8.3 % (2.6-8.5); Neutrophils Absolute Auto 6.5 K/mm3 (1.3-6.7); Neutrophils Percent Auto 60.5 % (45.5-73.1); Platelet Count Result 234 k/mm3 (150-375); Red Blood Count 4.11 M/mm3 (4.2-5.4); Red Cell Distribution Width 13.5 % (11.5-14.5); White Blood Count 10.8 K/mm3 (4.5-10.0)
[2021-10-07 23:36] LABS: Anion Gap 4 mmol/L (8-16); Blood Urea Nitrogen 5 mg/dL (7-17); Calcium 8.2 mg/dL (8.4-10.2); Carbon Dioxide 28 mmol/L (22-30); Chloride 108 mmol/L (98-107); Estimated CRCL calculation 91 ml/min; Estimated Glomerular Filt Rate > 60; Glucose 87 mg/dL (65-110); Potassium 3.6 mmol/L (3.4-5.0); Sodium 140 mmol/L (137-145)
[2021-10-08 01:15] VITALS: BP 110/76; PULSE 85; RESP 16; O2SAT 95
== END 2021-10-08 01:17 | disposition home or self-care (01) ==
PROVIDERS: Emergency Provider Emergency Medicine; PCP Family Medicine
DX: N39.0 Urinary tract infection, site not specified (principal); N23 Unspecified renal colic; N13.6 Pyonephrosis; Z87.442 Personal history of urinary calculi
CPT/HCPCS: 36415; 74176; 80048; 81001; 81025; 85025; 87077; 87086; 87088; 96361; 96374; 96375; 99284; J1885; J2550; J7030

== ENCOUNTER 2021-10-10 19:54 | Inpatient (IN) | payer OTHER, MEDICAID, SELFPAY ==
[2021-10-10] VITALS (12 sets, daily range): BP systolic 114–129; BP diastolic 71–87; PULSE 90–111; RESP 17–20; TEMP 36.7–37.7; O2SAT 95–100
--- NOTE | ~2021-10-10 | CT_ITS ---
EXAMINATION: CT abdomen pelvis w con DATE: 10/10/2021 21:30 INDICATION: Left flank pain TECHNIQUE: Computed tomography (CT) of the abdomen and pelvis was performed with 100 mL Omnipaque-350 intravenous contrast. Automated exposure control and iterative reconstruction technique were employe d. The dose-length product was 375.13 mGy-cm. COMPARISON: 10/07/2021 FINDINGS: Lung bases are clear. Heart size is normal. No pericardial or pleural effusion. Cholecystectomy clips at the gallbladder fossa. Liver, spleen, pancreas and bilateral adrenal glands are normal. Bilateral renal cysts the largest on the right measuring 2.6 cm. Bilateral nephrolithiasis with 3 nonobstructi ng stones in the right kidney the largest measuring 6 mm and 2 in the left kidney the largest measuri ng 3 mm. There is mild left hydroureteronephrosis despite what appears to remain appropriately positi oned left internal ureteral stent with loops formed in the left renal pelvis and in the bladder. Ther e is mild left perinephric stranding and slightly delayed left nephrogram relative to the right kidne y. Bladder is normal. 2.1 cm peripherally enhancing partially collapsed left corpus luteum cyst. Uter us and right adnexa are unremarkable. Bowels are unremarkable. Small amount of likely physiologic cassandra e fluid in the cul-de-sac. No abscess or free intraperitoneal gas. No pathologically enlarged abdomin al or pelvic lymphadenopathy. Bones are unremarkable. IMPRESSION: 1. Persistent mild left hydronephrosis and slightly delayed left of grams despite the continued prese nce of a left internal ureteral stent which is in expected position. 2. Bilateral nephrolithiasis. Reviewed, dictated and finalized at location A. IMPRESSION: 1. Persistent mild left hydronephrosis and slightly delayed left of grams despi te the continued presence of a left internal ureteral stent which is in expecte d position. 2. Bilateral nephrolithiasis.
[2021-10-10] MEDS: KETOROLAC 30 MG/ML VIAL (*BKC) IV PUSH (20:57)
[2021-10-10] MEDS: SODIUM CHLORIDE 0.9% IV 1,000 ML 999 ML IV CONT (20:57)
[2021-10-10 21:02] LABS: Basophils Absolute Auto 0.1 K/mm3 (0.0-0.1); Basophils Percent Auto 0.5 % (0.2-1.2); Eosinophils Percent Auto 0.2 % (0-4.4); Hematocrit 38.7 % (37.0-47.0); Hemoglobin 12.5 g/dL (12.0-15.0); Immature Granulocyte Absolute 0.05 K/mm3 (0.00-0.031); Immature Granulocyte Percent A 0.5 % (0-0.5); Lymphocytes Absolute Auto 2.27 K/mm3 (0.9-3.2); Lymphocytes Percent Auto 21.2 % (18.3-44.2); Mean Corpuscular HGB Conc 32.3 g/dl (32-36); Mean Corpuscular Hemoglobin 31.1 pg (26-34); Mean Corpuscular Volume 96.3 fl (80-100); Mean Platelet Volume 9.4 fl (7.4-10.4); Monocytes Absolute Auto 1.1 K/mm3 (0.1-0.6); Monocytes Percent Auto 10.5 % (2.6-8.5); Neutrophils Absolute Auto 7.2 K/mm3 (1.3-6.7); Neutrophils Percent Auto 67.1 % (45.5-73.1); Platelet Count Result 268 k/mm3 (150-375); Red Blood Count 4.02 M/mm3 (4.2-5.4); Red Cell Distribution Width 13.2 % (11.5-14.5); White Blood Count 10.7 K/mm3 (4.5-10.0)
[2021-10-10 21:12] LABS: Potassium 3.7 mmol/L (3.4-5.0)
[2021-10-10 21:14] LABS: Alanine Aminotransferase 61 U/L (4-35); Albumin Level 3.8 g/dL (3.5-5.1); Alkaline Phosphatase 76 U/L (38-126); Anion Gap 7 mmol/L (8-16); Aspartate Amino Transferase 46 U/L (14-36); Bilirubin,Total 0.5 mg/dL (0.2-1.3); Blood Urea Nitrogen 8 mg/dL (7-17); Calcium 8.3 mg/dL (8.4-10.2); Carbon Dioxide 25 mmol/L (22-30); Chloride 101 mmol/L (98-107); Estimated CRCL calculation 79 ml/min; Estimated Glomerular Filt Rate > 60; Glucose 104 mg/dL (65-110); Sodium 133 mmol/L (137-145)
[2021-10-10 21:15] LABS: Add Urine Microscopic? YES; Appearance Urine Cloudy (Clear); Bacteria Urine Trace /hpf; Bilirubin Urine Negative (Negative); Blood Urine 2+ (Negative); Color Urine Amber (Yellow); Glucose Urine UA Negative (Negative); Ketones Urine Negative (Negative); Leukocyte Esterase Ur 3+ LEU/UL (Negative); Mucus Urine Rare /lpf; Nitrate Urine Positive (Negative); Protein Urine Negative (Negative); Specific Grav Ur 1.005 (1.001-1.035); Squamous Epithelial Cell Urine Rare /hpf (Few); WBC Urine >75 /hpf
--- NOTE | 2021-10-10 21:20 | PC.NURSE ---
Patient taken to CT.
[2021-10-10 21:23] LABS: Lactic Acid Reflex 0.8 mmol/L (0.7-2.1)
[2021-10-10 21:49] LABS: Influenza A QL RT-PCR Negative (Negative); Influenza B QL RT-PCR Negative (Negative); SARS-CoV-2 RNA PCR Negative
[2021-10-10] MEDS: MORPHINE SULFATE (*CRX) 4 MG/ML INJ IV PUSH (21:52)
--- NOTE | 2021-10-10 22:45 | ED.ABDPAIN ---
HPI - Abdominal Pain General Chief Complaint: Abdominal Pain Stated Complaint: fever, flank pain Time Seen by Provider: 10/10/21 20:11 History of Present Illness HPI narrative: Patient is a 36-year-old female who presents ER with left-sided flank pain. Recently diagnosed with UTI. Patient with known indwelling left-sided urinary stent. Was placed on Bactrim. Has not improved. Today she began having fevers and sweats and fatigue. She has persistent flank pain on the left side. She also has some mild low back pain that radiates down her leg when she twists or bends. No numbness or tingling in her private parts. Patient tried taking some Azo today for urinary relief but did not help. Urine culture shows group B strep growing in the urine. Related Data Allergies Allergy/AdvReac Type Severity Reaction Status Date / Time talc Allergy Intermediate RASH, Verified 10/10/21 20:12 ITCHING BABY POWDER Review of Systems Review of Systems: All systems reviewed & are unremarkable except as noted in HPI and below Constitutional: Constitutional: Reports chills, Reports fever(s) and Reports weakness ENT: Denies nasal congestion and Denies sore throat Cardiovascular: Cardiovascular: Denies chest pain, Denies rapid heart rate and Denies radiating jaw, neck or arm pain Respiratory: Respiratory: Denies cough and Denies dyspnea Gastrointestinal: Gastrointestinal: Denies abdominal pain, Denies diarrhea, Reports nausea and Denies vomiting Genitourinary: Genitourinary: Denies hematuria, Reports nocturia, Reports dysuria, Reports flank pain and Denies urinary incontinence Musculoskeletal: Musculoskeletal: Reports back pain, Denies arthralgias, Denies joint swelling and Denies muscle cramps Neurologic: Denies focal weakness and Denies numbness [facility] Past Medical History Medical History History of kidney stones Renal calculus, bilateral Surgical History Surgical History History of 3 sections History of appendectomy History of cholecystectomy History of cystoscopy History of dilation and curettage History of lithotripsy History of tubal ligation Family History Family History Other Acute myocardial infarction Degenerative disorder of bone Diabetes mellitus Hypertension Social History Social History Social History: Surrogate decision maker:Chiqui Broussard, mother. Code status: Full code. Years smoked: 25 Smoking status: Light tobacco smoker Alcohol intake: never Drinks per week: 0 Substance use: never Substance use type: does not use Spiritual care concerns: No Exam Narrative: GENERAL: Fatigued-appearing, well-nourished, and in no acute distress. HEAD: Normocephalic, atraumatic. EYES: PERRL and EOMI. ENT: Mucous membranes moist. CHEST: Clear to auscultation. No respiratory distress. HEART: Tachycardic and regular. Normal peripheral pulses. ABDOMEN: Soft, nontender, nondistended. Left-sided CVA tenderness. Back: No midline tenderness of the T/L-spine. There is paraspinal muscular tenderness in the left lower lumbar region near L5. EXTREMITIES: Normal range of motion. No edema. NEURO: Alert and oriented x3. PSYCH: Normal mood and affect. Course Course Emergency Course: Patient informed of diagnosis and treatment plan. Admit to hospitalist service. Dr. Phelps with urology consulted. He would like to be contacted should patient becoming unstable but does not feel any intervention is required at this time. Ampicillin chosen as a antibacterial agent. Patient educated by breast abnormality on CT scan and need for follow-up. Vital Signs Vital signs: Vital Signs Temperature 99.9 F H 10/10/21 19:57 Pulse Rate 111 H 10/10/21 19:57 Respiratory Rate
[2021-10-10] MEDS: AMPICILLIN 2 GM/NS 100 ML 2 GM/100 ML BAG IVPB (23:46)
[2021-10-11] VITALS (7 sets, daily range): BP systolic 91–117; BP diastolic 65–77; PULSE 57–98; RESP 14–18; TEMP 36.6–37.1; O2SAT 97–100; BMI 29.7
--- NOTE | 2021-10-11 00:11 | PM.IMHP ---
H&P: HPI History of Present Illness Date/Time: 10/10/21 23:30 Chief Complaint: Fever, nausea and flank pain Narrative: 36-year-old with past medical history of kidney stone diagnosed 08/07/2021 with ureteral stent placed who presented to the ER with fever nausea and flank pain. Patient was initially evaluated 10/07/2021 due to left flank pain and was diagnosed with a UTI and discharged on empiric antibiotic therapy with Bactrim. Reports that the patient's urine culture grew out 100,000 colonies of group B strep which is not sensitive to Bactrim. She reports that her symptoms have progressively worsened with continued decreased appetite and severe nausea without vomiting. Today she developed increasing left flank pain 10/10 in intensity with associated subjective fevers and severe chills. She reports that her flank pain is worse with percussion and palpation of the left lower flank. She denies any dysuria. She has been having increased fatigue. She reports that her flank pain does radiate down to her leg and is worse with twisting and bending. She did try to take some azo today without any relief in her symptoms. She denies any increased urinary frequency or urgency. She has not noticed any hematuria. She had a repeat CT scan on the went demonstrated mild left hydronephrosis with a ureteral stent in good position with bilateral nephrolithiasis. Repeat CT scan of the abdomen pelvis with contrast today demonstrated left nephroureteral stent adequately positioned with left moderate hydro ureter nephrosis may represent stent malfunction with probable UTI with left pyelonephritis. Nonobstructive bilateral renal nephrolithiasis and mildly prominent left ovary. Incidental findings of asymmetric breast tissue imaging more prominent left left periareolar/retro areolar skin thickening. The patient denied any skin changes to her breast or tenderness. She has never had a mammogram. Review of Systems Review of Systems: 12 systems were reviewed with pertinent positives and negatives per HPI. Except as documented in the HPI, all other systems were reviewed and are negative. [facility] Past Medical History Medical History (Updated 10/11/21 @ 00:46 by Dang Aguilar DO) Continuous tobacco abuse History of kidney stones Renal calculus, bilateral Surgical History Surgical History (Updated 10/11/21 @ 00:42 by Dang Aguilar DO) History of 3 sections History of appendectomy History of cholecystectomy History of cystoscopy History of dilation and curettage History of lithotripsy History of tubal ligation Family History Family History Father , At age 52 Acute myocardial infarction Diabetes mellitus Hypertension Heart disease CHF (congestive heart failure) Mother Hypertension Other Degenerative disorder of bone Social History Social History (Updated 10/11/21 @ 00:33 by Dang Aguilar DO) Social History: He lives at home with her 4 children. She is . Children are 17, 13, 9 and 2 years old. She works in a restaurant. She used to smoke a pack of cigarettes per day but cut back to 0.5 pack per day in 2018. She used to binge drink on the weekends but quit binge drinking in June of 2021. Surrogate decision maker:Chiqui Broussard, mother. Code status: Full code. Smoking packs per day: 0.5 Smoking cigarettes per day: 10.0 Years smoked: 25 Smoking pack-years: 12.50 Smoking status: Current every day smoker Tobacco type: cigarettes Alcohol intake: former Substance use: never Substance use type: does not use Spiritual care concerns: No Meds Home Medications and Allergies Home Medications Medication Instructions Recorded Confirmed Type ciprofloxacin HCl [Cipro] 500 mg PO Q12H #14 tablet 08/09/21 10/11/21 Rx sulfamethoxazole-trimethoprim 1 tablet PO Q12H #6 tablet 10/08/21 10/11/21 Rx [Bactrim DS]
--- NOTE | 2021-10-11 00:26 | ADMGEN ---
This patient, Emilee Rivera, was admitted to Medical Room 242-01. Patient/family oriented to hospital policies and general routines including ID bracelet, bed and alarms, visiting hours, pain management, procedures, bathroom and other care routines, personal items, smoking policy, room service/diet, and visiting hours. Information on how to activate the Rapid Response Team has been discussed. Patient/Family are encouraged to report perceived risks to care and to ask questions if they do not understand what they are told or what they should do.
[2021-10-11] MEDS: HYDROcodone/acetaminophen (*CRX) 5-325 MG TABLET 1 TAB PO ×4 (00:51→20:13)
[2021-10-11] MEDS: SODIUM CHLORIDE 0.9% IV 1,000 ML 125 ML IV CONT ×3 (00:51→21:34)
[2021-10-11] MEDS: AMPICILLIN 1 GM/NS 50 ML 1 GM/50 ML BAG IVPB ×3 (06:18→18:08)
--- NOTE | 2021-10-11 08:22 | PM.IMPN ---
Progress Note: A&P Assessment and Plan (1) Pyelonephritis: Code(s): N12 - Tubulo-interstitial nephritis, not specified as acute or chronic Status: Acute Assessment and Plan: -Sepsis criteria met with tachycardia, fever, leukocytosis in known pyelonephritis. -Patient has sepsis secondary to strep group B strep left pyelonephritis complicated by ureteral stent. Possible malfunction of ureteral stent due to pyelonephritis. -Patient has been started on antibiotic therapy with ampicillin. -Blood culture and repeat urine culture pending. -Urology has been consulted. -P.r.n. pain medications with [place], Tylenol and morphine have been ordered. -Will continue IV fluid hydration with normal saline. (2) Sepsis: Qualifiers: Sepsis type: Streptococcus group B Sepsis acute organ dysfunction status: without acute organ dysfunction Qualified Code(s): A40.1 - Sepsis due to streptococcus, group B Code(s): A41.9 - Sepsis, unspecified organism Status: Acute Assessment and Plan: as above (3) Occlusion of ureteral stent: Qualifiers: Encounter type: initial encounter Qualified Code(s): T83.192A - Other mechanical complication of indwelling ureteral stent, initial encounter Code(s): T83.192A - Other mechanical complication of indwelling ureteral stent, initial encounter Status: Acute Assessment and Plan: as above (4) Abnormal finding on breast imaging: Code(s): R92.8 - Other abnormal and inconclusive findings on diagnostic imaging of breast Status: Acute Assessment and Plan: -Patient has abnormal tissue thickening noted on left breast as incidental finding on CT scan. -Patient will need outpatient mammogram and breast ultrasound at discharge. (5) Continuous tobacco abuse: Code(s): Z72.0 - Tobacco use Status: Acute Assessment and Plan: -The patient reports that she has quit smoking each time she has become . -Each time she is no longer she started smoking again. -She has cut down to half a pack of cigarettes per day. - She realizes that she should quit smoking but is not motivated to quit smoking at this time. -She refuses nicotine supplements at this time. Subjective Date/time seen: 10/11/21 08:22 Interval history: 36-year-old with past medical history of kidney stone diagnosed 08/07/2021 with ureteral stent placed who is admitted for pyelo. She is feeling a little better but still having 6/10 L flank pain and some nausea. She was able to keep down dinner last night. No abd pain, dysuria, frequency. No cp/sob. Review of Systems Review of Systems: All systems reviewed & are unremarkable except as noted in HPI and below Exam Narrative: WEIGHT 70.4 kg BMI 28.4 General: No acute distress, well-developed well-nourished, pacing around the room HEENT: Mucous membranes are moist, no oral pharyngeal erythema, no scleral icterus, no conjunctival pallor Respiratory: Clear to auscultation bilaterally, no increased work of breathing Cardiovascular: Regular rate, regular rhythm, 2+ bilateral radial pedal pulses Gastrointestinal: Left lumbar and to lesser extent CVA tenderness, normoactive bowel sounds, nondistended Skin: warm, dry Musculoskeletal: No clubbing, cyanosis or edema Neurological: Alert and oriented, speech is clear, no facial asymmetry, no localizing neurologic deficits noted on limited exam Psychiatric: Appropriate mood and affect, pleasant and cooperative Hematologic/lymphatic: No petechiae, no bruising Objective Data Vital Signs Vital Signs: Vital Signs - 24 hr 10/10/21 19:57 10/10/21 21:43 10/10/21 21:55 Temperature 99.9 F H Pulse Rate 111 H 90 Respiratory Rate 20 17 Blood Pressure 129/87 115/76 Pulse Oximetry 100 99 98 10/10/21 21:56 10/10/21 21:58 10/10/21 22:09 Temperature 98.0 F Pulse Rate Respiratory Rate
--- NOTE | 2021-10-11 09:43 | WPDURCON ---
Assessment and Plan Assessment and plan (1) Sepsis: Qualifiers: Sepsis type: Streptococcus group B Sepsis acute organ dysfunction status: without acute organ dysfunction Qualified Code(s): A40.1 - Sepsis due to streptococcus, group B Code(s): A41.9 - Sepsis, unspecified organism Status: Acute (2) Pyelonephritis: Code(s): N12 - Tubulo-interstitial nephritis, not specified as acute or chronic Status: Acute Additional Plan 1. No need for acute urologic intervention. Patient appears to be clinically improving and hemodynamically stable. If change in hemodynamics or patient develops hemodynamic instability, contact Urology gambling box person emergently. 2. Agree with antibiotics, broaden if concern for worsening sepsis. Taper to C&S as they result. 3. Pain control with PRNs. 4. Await radiology interpretation, I do not appreciate ureterolithiasis on CT from yesterday evening. If radiology report is in agreement, could consider stent removal while on antibiotics after resolution of SIRS/Sepsis. Shanda Muir M.D. [facility] Consult Note HPI Date Seen: 10/11/21 Requesting Physician: Ingris Douglass PA-C Primary Care Provider: Rupa Richardson, Consult Narrative Narrative: Emilee Rivera is a 36 year old female who presents to [facility] with fever, nausea and pain with nitrite positive urine. The patient underwent ureteral stent placement on 08/07/[address] Everett. Two stones were found in the bladder and removed at that time. She was subseuqently seen in the office by Dr. Solitario who ordered a CT KUB to evaluate for persistent stones but no-showed for that CT scan 09/24/21. She subsequently presented to the ER on 10/07 with symptoms of UTI and was started on bactrim, her culture grew Group B strep. At the time of evaluation, I personally took her vitals: 97.5, 108/66 (MAP 75), HR 71, 99% on RA. She reports improvement in pain on ampicillin. She denies nausea and vomiting, she denies rigors. We discussed plan of treating with culture appropriate antibiotics and she understands these will take 24-48hr to result and removal of her stent while on antibiotics after resolution of SIRS/Sepsis. I have personally evaluated her CT scan, there is no read available yet. I do not appreciate persistent ureteral stone on abdominal or bone windowing. Review of Systems Constitutional: Constitutional: Reports anorexia, Reports body ache(s), Reports chills, Reports fatigue and Reports fever(s) Eyes: Eyes: Reports no additional eye complaints ENT: Reports system reviewed and no additional complaints, except as documented Cardiovascular: Cardiovascular: Reports no additional cardiovascular complaints Respiratory: Respiratory: Reports no additional respiratory complaints Gastrointestinal: Gastrointestinal: Reports no additional gastrointestinal complaints Genitourinary: Genitourinary: Denies hematuria, Reports dysuria and Reports flank pain Musculoskeletal: Musculoskeletal: Reports back pain and Reports myalgias Integumentary/Breasts: Skin/Breast: Reports system reviewed and no additional complaints, except as docu Neurologic: Reports system reviewed and no additional complaints, except as documented Psychiatric: Psychiatric: Reports no additional psychiatric complaints Endocrine: Endocrine: Reports no additional endocrine complaints Hematologic/Lymphatic: Hematologic/Lymphatic: Reports no additional hematologic/lymphatic complaints Allergic/Immunologic: Allergic/Immunologic: Reports no additional allergic/immunologic complaints [facility] Past Medical History Medical History (Updated 10/11/21 @ 00:46 by Dang Aguilar DO) Continuous tobacco abuse History of kidney stones Renal calculus, bilateral Surgical History Surgical History (Updated 10/11/21 @ 00:42 by Dang Aguilar DO) History of 3 sections History of appendectomy History of cholecystectomy History of cysto
[2021-10-11] MEDS: MORPHINE SULFATE (*CRX) 4 MG/ML INJ IV PUSH (18:23)
[2021-10-12] MEDS: AMPICILLIN 1 GM/NS 50 ML 1 GM/50 ML BAG IVPB ×4 (00:03→17:05)
[2021-10-12] MEDS: MORPHINE SULFATE (*CRX) 4 MG/ML INJ IV PUSH ×2 (00:05→05:51)
[2021-10-12 05:39] VITALS: BP 117/73; PULSE 65; RESP 18; TEMP 36.4; O2SAT 98
[2021-10-12] MEDS: SODIUM CHLORIDE 0.9% IV 1,000 ML 125 ML IV CONT ×2 (05:49→17:05)
[2021-10-12 06:13] LABS: Basophils Absolute Auto 0.1 K/mm3 (0.0-0.1); Basophils Percent Auto 0.7 % (0.2-1.2); Eosinophils Absolute Auto 0.1 K/mm3 (0-0.3); Eosinophils Percent Auto 1.7 % (0-4.4); Hematocrit 30.1 % (37.0-47.0); Hemoglobin 9.6 g/dL (12.0-15.0); Immature Granulocyte Absolute 0.03 K/mm3 (0.00-0.031); Immature Granulocyte Percent A 0.4 % (0-0.5); Lymphocytes Absolute Auto 3.01 K/mm3 (0.9-3.2); Mean Corpuscular HGB Conc 31.9 g/dl (32-36); Mean Corpuscular Hemoglobin 30.8 pg (26-34); Mean Corpuscular Volume 96.5 fl (80-100); Mean Platelet Volume 9.7 fl (7.4-10.4); Monocytes Absolute Auto 0.7 K/mm3 (0.1-0.6); Monocytes Percent Auto 10.2 % (2.6-8.5); Neutrophils Absolute Auto 3.2 K/mm3 (1.3-6.7); Platelet Count Result 202 k/mm3 (150-375); Red Blood Count 3.12 M/mm3 (4.2-5.4); Red Cell Distribution Width 13.3 % (11.5-14.5); White Blood Count 7.2 K/mm3 (4.5-10.0)
[2021-10-12 06:21] LABS: Anion Gap 1 mmol/L (8-16); Blood Urea Nitrogen 5 mg/dL (7-17); Calcium 7.5 mg/dL (8.4-10.2); Carbon Dioxide 23 mmol/L (22-30); Chloride 109 mmol/L (98-107); Estimated CRCL calculation 106 ml/min; Estimated Glomerular Filt Rate > 60; Glucose 95 mg/dL (65-110); Sodium 133 mmol/L (137-145)
[2021-10-12 08:10] VITALS: O2SAT 98
--- NOTE | 2021-10-12 08:33 | PM.IMPN ---
Progress Note: A&P Assessment and Plan (1) Pyelonephritis: Code(s): N12 - Tubulo-interstitial nephritis, not specified as acute or chronic Status: Acute Assessment and Plan: -Sepsis criteria met with tachycardia, fever, leukocytosis and known pyelonephritis. -Patient has sepsis secondary to strep group B strep left pyelonephritis complicated by ureteral stent. Possible malfunction of ureteral stent due to pyelonephritis. -Patient has been started on antibiotic therapy with ampicillin. -Blood culture and repeat urine culture pending. -Urology has been consulted. -P.r.n. pain medications with [place], Tylenol and morphine have been ordered. -Will continue IV fluid hydration with normal saline. (2) Sepsis: Qualifiers: Sepsis type: Streptococcus group B Sepsis acute organ dysfunction status: without acute organ dysfunction Qualified Code(s): A40.1 - Sepsis due to streptococcus, group B Code(s): A41.9 - Sepsis, unspecified organism Status: Acute Assessment and Plan: as above (3) Occlusion of ureteral stent: Qualifiers: Encounter type: initial encounter Qualified Code(s): T83.192A - Other mechanical complication of indwelling ureteral stent, initial encounter Code(s): T83.192A - Other mechanical complication of indwelling ureteral stent, initial encounter Status: Acute Assessment and Plan: as above (4) Abnormal finding on breast imaging: Code(s): R92.8 - Other abnormal and inconclusive findings on diagnostic imaging of breast Status: Acute Assessment and Plan: -Patient has abnormal tissue thickening noted on left breast as incidental finding on CT scan. -Patient will need outpatient mammogram and breast ultrasound at discharge. (5) Continuous tobacco abuse: Code(s): Z72.0 - Tobacco use Status: Acute Assessment and Plan: -The patient reports that she has quit smoking each time she has become . -Each time she is no longer she started smoking again. -She has cut down to half a pack of cigarettes per day. - She realizes that she should quit smoking but is not motivated to quit smoking at this time. -She refuses nicotine supplements at this time. Subjective Date/time seen: 10/12/21 08:33 Interval history: 36-year-old with past medical history of kidney stone diagnosed 08/07/2021 with ureteral stent placed who is admitted for pyelo. Pt is not feeling well this morning. She is having moderate flank pain, nausea, and decreased appetite. No vomiting or abdominal pain. No urinary symptoms. Has not had a BM for a few days. Review of Systems Review of Systems: All systems reviewed & are unremarkable except as noted in HPI and below Exam Narrative: WEIGHT 70.4 kg BMI 28.4 General: No acute distress, well-developed well-nourished HEENT: Mucous membranes are moist, no scleral icterus, no conjunctival pallor Respiratory: Clear to auscultation bilaterally, no increased work of breathing Cardiovascular: Regular rate, regular rhythm, 2+ bilateral radial pedal pulses Gastrointestinal: Left lumbar and to lesser extent CVA tenderness, normoactive bowel sounds, nondistended, abdomen soft and non tender Skin: warm, dry Musculoskeletal: No clubbing, cyanosis or edema Neurological: Alert and oriented, speech is clear, no facial asymmetry Psychiatric: Appropriate mood and affect, pleasant and cooperative Hematologic/lymphatic: No petechiae, no bruising Objective Data Vital Signs Vital Signs: Vital Signs - 24 hr 10/11/21 13:59 10/11/21 21:53 10/11/21 22:32 Temperature 98.1 F 98.1 F Pulse Rate 64 68 Respiratory Rate 16 18 Blood Pressure 114/67 113/74 Pulse Oximetry 99 100 99 10/12/21 05:39 10/12/21 08:10 Temperature 97.5 F L Pulse Rate 65 Respiratory Rate 18 Blood Pressure 117/73 Pulse Oximetry 98 98 Intake/Output
[2021-10-12] MEDS: ONDANSETRON INJ 4 MG/2 ML VIAL IV PUSH ×2 (08:36→12:43)
[2021-10-12] MEDS: HYDROcodone/acetaminophen (*CRX) 5-325 MG TABLET 1 TAB PO ×3 (10:37→20:16)
[2021-10-12 12:30] VITALS: BP 122/84; PULSE 65; RESP 17; TEMP 36.8; O2SAT 98
[2021-10-12 14:00] VITALS: BP 128/89; PULSE 72; RESP 18; TEMP 36.5; O2SAT 100
--- NOTE | 2021-10-12 15:38 | WPDUROPN2 ---
Progress Note: A&P Assessment and Plan (1) Occlusion of ureteral stent: Qualifiers: Encounter type: initial encounter Qualified Code(s): T83.192A - Other mechanical complication of indwelling ureteral stent, initial encounter Code(s): T83.192A - Other mechanical complication of indwelling ureteral stent, initial encounter Status: Acute Assessment and Plan: CT shows mild left hydronephrosis with stent in expected position. The stent continues to cause her ongoing pain even with treatment of her Group B strep UTI. We will plan to remove her stent Tuesday in the office with Dr. Everett at 8am. She can be discharged home on oral antibiotics at anytime per Urology. (2) UTI (urinary tract infection): Code(s): N39.0 - Urinary tract infection, site not specified Status: Acute Assessment and Plan: Continue IV antibiotics. Ok to discharge home at anytime on oral antibiotics. Subjective Subjective Date/Time Seen: 10/12/21 15:38 Patient seems to be doing ok today. She is not tolerating her stent well, her stent pain in the left flank/left lower and upper quadrant remains. She has also been struggling off and on with nausea and no appetite. She denies urinary symptoms. Remains on Ampicillin. Review of Systems Cardiovascular: Cardiovascular: Denies no additional cardiovascular complaints Respiratory: Respiratory: Reports no additional respiratory complaints Gastrointestinal: Gastrointestinal: Reports abdominal pain, Reports nausea and Denies vomiting Genitourinary: Genitourinary: Denies hematuria, Denies dysuria, Denies pelvic pain, Reports flank pain, Denies urinary incontinence and Denies urinary urgency Exam Resp: Effort & Inspection: normal respiratory effort Cardio: Rate: regular rate GI: GI Palp: Yes Soft to palpation and Yes Tenderness to palpation present (GI) (LLQ, LUQ) : General: Yes CVA tenderness on the left Extrem: General: no edema Objective Data Vital Signs Vital Signs: Vital Signs - 24 hr 10/11/21 21:53 10/11/21 22:32 10/12/21 05:39 Temperature 98.1 F 97.5 F L Pulse Rate 68 65 Respiratory Rate 18 18 Blood Pressure 113/74 117/73 Pulse Oximetry 100 99 98 10/12/21 08:10 10/12/21 12:30 10/12/21 14:00 Temperature 98.2 F 97.7 F Pulse Rate 65 72 Respiratory Rate 17 18 Blood Pressure 122/84 128/89 Pulse Oximetry 98 98 100 Intake/Output Intake/Output: Intake & Output 10/09/21 10/10/21 10/11/21 10/12/21 23:59 23:59 23:59 23:59 Intake Total 1000 3770 1940 Output Total 1050 Balance 1000 2720 1940 Meds/Results Medications: Active Medications Generic Name Dose Route Start Last Admin Trade Name Freq PRN Reason Stop Dose Admin Acetaminophen 650 mg 10/10/21 23:52 Acetaminophen 325 Mg Tablet PO Q4H PRN Mild Pain (1-3) or Fever Hydrocodone Bitart/Acetaminophen 1 tab 10/10/21 23:52 10/12/21 10:37 Hydrocodone/Acetaminophen (*Crx) 5-325 Mg Tablet PO 1 tab Q4H PRN Administration Pain Rated 4-6 Ampicillin Sodium 1 gm in 50 mls @ 100 mls/hr 10/11/21 06:00 10/12/21 11:34 Ampicillin 1 Gm/Ns 50 Ml IVPB Infused Q6H ZAHEER Infusion Sodium Chloride 1,000 mls @ 125 mls/hr 10/10/21 23:55 10/12/21 05:49 Normal Saline Iv IV CONT 125 mls/hr .Q8H ZAHEER Administration Morphine Sulfate 4 mg 10/11/21 07:12 10/12/21 05:51 Morphine Sulfate (*Crx) 4 Mg/Ml Inj IV PUSH 4 mg Q4H PRN Administration Pain Rated 7-10 Ondansetron HCl 4 mg 10/10/21 23:52 10/12/21 12:43 Ondansetron Inj 4 Mg/2 Ml Vial IV PUSH 4 mg Q4H PRN Administration Nausea Radiology Results: ITS Impressions Abdomen/Pelvis CT 10/11/21 12:12 IMPRESSION: 1. Persistent mild left hydronephrosis and slightly delayed left of grams despite the continued presence of a left internal ureteral stent which is in expected position. 2. Bilateral nephrolithiasis. Labs Labs: Laboratory Results - la
[2021-10-12 20:00] VITALS: PULSE 51; RESP 16; O2SAT 98
[2021-10-12 20:02] VITALS: BP 119/72; PULSE 51; RESP 16; TEMP 36.7; O2SAT 98
[2021-10-13] MEDS: HYDROcodone/acetaminophen (*CRX) 5-325 MG TABLET 1 TAB PO ×2 (00:12→05:37)
[2021-10-13] MEDS: AMPICILLIN 1 GM/NS 50 ML 1 GM/50 ML BAG IVPB ×5 (00:13→23:14)
[2021-10-13] MEDS: SODIUM CHLORIDE 0.9% IV 1,000 ML 125 ML IV CONT ×3 (02:04→20:20)
[2021-10-13 03:50] VITALS: BP 111/68; PULSE 52; RESP 18; TEMP 36.2; O2SAT 96
[2021-10-13 06:01] LABS: Basophils Absolute Auto 0.1 K/mm3 (0.0-0.1); Basophils Percent Auto 0.9 % (0.2-1.2); Eosinophils Absolute Auto 0.1 K/mm3 (0-0.3); Eosinophils Percent Auto 1.6 % (0-4.4); Hematocrit 31.7 % (37.0-47.0); Immature Granulocyte Absolute 0.01 K/mm3 (0.00-0.031); Immature Granulocyte Percent A 0.2 % (0-0.5); Lymphocytes Absolute Auto 2.69 K/mm3 (0.9-3.2); Lymphocytes Percent Auto 49.2 % (18.3-44.2); Mean Corpuscular HGB Conc 31.5 g/dl (32-36); Mean Corpuscular Hemoglobin 31.1 pg (26-34); Mean Corpuscular Volume 98.4 fl (80-100); Mean Platelet Volume 9.6 fl (7.4-10.4); Monocytes Absolute Auto 0.5 K/mm3 (0.1-0.6); Neutrophils Absolute Auto 2.1 K/mm3 (1.3-6.7); Neutrophils Percent Auto 39.1 % (45.5-73.1); Platelet Count Result 218 k/mm3 (150-375); Red Blood Count 3.22 M/mm3 (4.2-5.4); Red Cell Distribution Width 13.3 % (11.5-14.5); White Blood Count 5.5 K/mm3 (4.5-10.0)
[2021-10-13 06:30] LABS: Alanine Aminotransferase 136 U/L (4-35); Albumin Level 2.8 g/dL (3.5-5.1); Alkaline Phosphatase 92 U/L (38-126); Anion Gap 4 mmol/L (8-16); Aspartate Amino Transferase 105 U/L (14-36); Bilirubin,Total 0.2 mg/dL (0.2-1.3); Blood Urea Nitrogen 5 mg/dL (7-17); Calcium 7.4 mg/dL (8.4-10.2); Carbon Dioxide 23 mmol/L (22-30); Chloride 110 mmol/L (98-107); Estimated CRCL calculation 92 ml/min; Estimated Glomerular Filt Rate > 60; Glucose 94 mg/dL (65-110); Potassium 3.9 mmol/L (3.4-5.0); Sodium 137 mmol/L (137-145)
--- NOTE | 2021-10-13 07:48 | PM.IMPN ---
Progress Note: A&P Assessment and Plan (1) Pyelonephritis: Code(s): N12 - Tubulo-interstitial nephritis, not specified as acute or chronic Status: Acute Assessment and Plan: -Sepsis criteria met on arrival with tachycardia, fever, leukocytosis and known pyelonephritis. -Patient had sepsis secondary to strep group B strep left pyelonephritis complicated by ureteral stent. Possible malfunction of ureteral stent due to pyelonephritis. -Patient has been started on antibiotic therapy with ampicillin. -Blood culture NGTD -Repeat urine culture again shows group B strep -Will continue IV fluid hydration with normal saline as patient is still having trouble tolerating PO -Increased pain medication to Dilaudid 0.5, percocet 5/325, or tylenol as she is still having significant pain -Urology has been consulted. They plan to remove the stent in the office Tuesday morning. They state that she can be discharged home on oral abx which I agree with as soon as we are able to get her pain under control and she is tolerating PO better. (2) Sepsis: Qualifiers: Sepsis type: Streptococcus group B Sepsis acute organ dysfunction status: without acute organ dysfunction Qualified Code(s): A40.1 - Sepsis due to streptococcus, group B Code(s): A41.9 - Sepsis, unspecified organism Status: Acute Assessment and Plan: as above (3) Occlusion of ureteral stent: Qualifiers: Encounter type: initial encounter Qualified Code(s): T83.192A - Other mechanical complication of indwelling ureteral stent, initial encounter Code(s): T83.192A - Other mechanical complication of indwelling ureteral stent, initial encounter Status: Acute Assessment and Plan: as above (4) Abnormal finding on breast imaging: Code(s): R92.8 - Other abnormal and inconclusive findings on diagnostic imaging of breast Status: Acute Assessment and Plan: -Patient has abnormal tissue thickening noted on left breast as incidental finding on CT scan. -Patient will need outpatient mammogram and breast ultrasound at discharge. (5) Continuous tobacco abuse: Code(s): Z72.0 - Tobacco use Status: Acute Assessment and Plan: -The patient reports that she has quit smoking each time she has become . -Each time she is no longer she started smoking again. -She has cut down to half a pack of cigarettes per day. - She realizes that she should quit smoking but is not motivated to quit smoking at this time. -She refuses nicotine supplements at this time. Subjective Date/time seen: 10/13/21 07:48 Interval history: 36-year-old with past medical history of kidney stone diagnosed 08/07/2021 with ureteral stent placed who is admitted for pyelo. Pt still having significant L flank pain. Also having L sided abd pain today. Still with nausea and decreased appetite. Has not been able to eat much. No vomiting. No fevers. Has not had a BM in several days and feels constipated. Review of Systems Review of Systems: All systems reviewed & are unremarkable except as noted in HPI and below Exam Narrative: WEIGHT 70.4 kg BMI 28.4 General: No acute distress, well-developed well-nourished HEENT: Mucous membranes are moist, no scleral icterus, no conjunctival pallor Respiratory: Clear to auscultation bilaterally, no increased work of breathing Cardiovascular: Regular rate, regular rhythm, 2+ bilateral radial pedal pulses Gastrointestinal: Left lumbar and to lesser extent CVA tenderness, normoactive bowel sounds, nondistended, abdomen soft and mildly tender LLQ Skin: warm, dry Musculoskeletal: No clubbing, cyanosis or edema Neurological: Alert and oriented, speech is clear, no facial asymmetry Psychiatric: Appropriate mood and affect, pleasant and cooperative Hematologic/lymphatic: No petechiae, no bruising Objective Data [place]
[2021-10-13] MEDS: DOCUSATE SODIUM 100 MG CAPSULE PO ×2 (08:56→20:21)
[2021-10-13] MEDS: oxyCODONE/ACETAMINOPHEN (*CRX) 5-325 MG TABLET 1 TABLET PO ×3 (08:56→18:25)
[2021-10-13] MEDS: polyethylene glycoL 3350 17 GM POWD.PACK PO (08:56)
--- NOTE | 2021-10-13 12:19 | WPDCDIQUERY2 ---
CDI Query Clarification Request -10/12 Hospitalist documented: Sepsis: Qualifiers: Sepsis type: Streptococcus group B Sepsis acute organ dysfunction status: without acute organ dysfunction Qualified Code(s): A40.1 - Sepsis due to streptococcus, group B A41.9 - Sepsis, unspecified organism Status: Acute Assessment and Plan: as above Vital signs from ER shows: Temperature 99.9, Pulse 111, Respirations 20, BP 129/87, Pulse Oximetry 100 Lactic acid 0.8 Considering above information, Please clarify if Sepsis meets sepsis criteria on admission
[2021-10-13 14:05] VITALS: BP 132/83; PULSE 56; RESP 17; TEMP 36.9; O2SAT 99
[2021-10-13 20:00] VITALS: PULSE 56; RESP 20; O2SAT 97
[2021-10-13 20:21] VITALS: BP 133/88; PULSE 56; RESP 20; TEMP 36.1; O2SAT 100
[2021-10-13] MEDS: HYDROmorphone HCL INJ (*CRX) 1 MG/ML SYR 0.5 MG IV PUSH ×2 (20:22→23:14)
[2021-10-13 20:50] VITALS: O2SAT 97
[2021-10-14 03:54] VITALS: BP 116/72; PULSE 57; RESP 16; TEMP 36.3; O2SAT 97
[2021-10-14] MEDS: AMPICILLIN 1 GM/NS 50 ML 1 GM/50 ML BAG IVPB ×2 (05:13→11:27)
[2021-10-14] MEDS: SODIUM CHLORIDE 0.9% IV 1,000 ML 125 ML IV CONT ×2 (05:13→12:47)
[2021-10-14] MEDS: oxyCODONE/ACETAMINOPHEN (*CRX) 5-325 MG TABLET 1 TABLET PO ×2 (05:13→08:59)
[2021-10-14 06:38] LABS: Basophils Absolute Auto 0.1 K/mm3 (0.0-0.1); Eosinophils Absolute Auto 0.1 K/mm3 (0-0.3); Eosinophils Percent Auto 1.8 % (0-4.4); Hematocrit 32.2 % (37.0-47.0); Hemoglobin 10.3 g/dL (12.0-15.0); Immature Granulocyte Absolute 0.02 K/mm3 (0.00-0.031); Immature Granulocyte Percent A 0.3 % (0-0.5); Lymphocytes Absolute Auto 2.99 K/mm3 (0.9-3.2); Lymphocytes Percent Auto 47.7 % (18.3-44.2); Mean Corpuscular Hemoglobin 30.9 pg (26-34); Mean Corpuscular Volume 96.7 fl (80-100); Mean Platelet Volume 9.9 fl (7.4-10.4); Monocytes Absolute Auto 0.5 K/mm3 (0.1-0.6); Monocytes Percent Auto 7.3 % (2.6-8.5); Neutrophils Absolute Auto 2.6 K/mm3 (1.3-6.7); Neutrophils Percent Auto 41.9 % (45.5-73.1); Platelet Count Result 271 k/mm3 (150-375); Red Blood Count 3.33 M/mm3 (4.2-5.4); Red Cell Distribution Width 13.1 % (11.5-14.5); White Blood Count 6.3 K/mm3 (4.5-10.0)
[2021-10-14 06:50] LABS: Alanine Aminotransferase 129 U/L (4-35); Alkaline Phosphatase 100 U/L (38-126); Anion Gap 4 mmol/L (8-16); Aspartate Amino Transferase 68 U/L (14-36); Bilirubin,Total < 0.1 mg/dL (0.2-1.3); Blood Urea Nitrogen 5 mg/dL (7-17); Calcium 7.6 mg/dL (8.4-10.2); Carbon Dioxide 26 mmol/L (22-30); Chloride 108 mmol/L (98-107); Estimated CRCL calculation 81 ml/min; Estimated Glomerular Filt Rate > 60; Glucose 90 mg/dL (65-110); Potassium 3.6 mmol/L (3.4-5.0); Sodium 138 mmol/L (137-145)
[2021-10-14 08:53] VITALS: RESP 16; O2SAT 98
[2021-10-14] MEDS: polyethylene glycoL 3350 17 GM POWD.PACK PO (08:53)
[2021-10-14] MEDS: DOCUSATE SODIUM 100 MG CAPSULE PO (08:53)
[2021-10-14 13:12] VITALS: O2SAT 97
--- NOTE | 2021-10-14 13:12 | WPDUROPN2 ---
Progress Note: A&P Assessment and Plan (1) Bilateral nephrolithiasis: Code(s): N20.0 - Calculus of kidney Status: Acute Assessment and Plan: Patient to follow up in one month in our [place] office for further monitoring and evaluation of her stones. (2) Obstruction of left ureteropelvic junction due to stone: Code(s): N20.1 - Calculus of ureter Status: Acute Assessment and Plan: Her left stent was removed at the bedside today by Dr. Abdiel Everett, she tolerated it well. She was prepped prior to the scope with Betadine swabs. She will follow up in one month in [place] at the office to further evaluate her left hydronephrosis by getting a MALLORY and KUB prior to her appointment. She will call our office if she develops severe pain, gross hematuria/clots, fever or symptoms of a UTI. Ok to discharge home at anytime. OK to discharge home on oral antibiotics. (3) Occlusion of ureteral stent: Qualifiers: Encounter type: initial encounter Qualified Code(s): T83.192A - Other mechanical complication of indwelling ureteral stent, initial encounter Code(s): T83.192A - Other mechanical complication of indwelling ureteral stent, initial encounter Status: Acute Subjective Subjective Date/Time Seen: 10/14/21 13:12 Patient seems to be doing ok today. She is not tolerating her stent well, her stent pain in the left flank/left lower and upper quadrant remains. She has also been struggling off and on with nausea and a poor appetite. She denies urinary symptoms. Remains on Ampicillin. We will remove her stent at the bedside today. Patient has signed a consent and agrees to proceed. Review of Systems Cardiovascular: Cardiovascular: Reports no additional cardiovascular complaints Respiratory: Respiratory: Reports no additional respiratory complaints Gastrointestinal: Gastrointestinal: Reports abdominal pain, Reports nausea and Denies vomiting Genitourinary: Genitourinary: Denies hematuria, Denies nocturia, Denies dysuria and Denies flank pain Exam Resp: Effort & Inspection: normal respiratory effort Cardio: Rate: regular rate GI: GI Palp: Yes Soft to palpation and Yes Tenderness to palpation present (GI) (LLQ) : General: Yes no CVA tenderness External Female Exam: normal external appearance, normal appearance of the urethra and No tender Extrem: General: no edema Objective Data Vital Signs Vital Signs: Vital Signs - 24 hr 10/13/21 14:05 10/13/21 20:00 10/13/21 20:21 Temperature 98.5 F 96.9 F L Pulse Rate 56 L 56 L 56 L Respiratory Rate 17 20 20 Blood Pressure 132/83 133/88 Pulse Oximetry 99 97 100 10/13/21 20:50 10/14/21 03:54 10/14/21 08:53 Temperature 97.3 F L Pulse Rate 57 L Respiratory Rate 16 16 Blood Pressure 116/72 Pulse Oximetry 97 97 98 10/14/21 13:12 Temperature Pulse Rate Respiratory Rate Blood Pressure Pulse Oximetry 97 Intake/Output Intake/Output: Intake & Output 10/11/21 10/12/21 10/13/21 10/14/21 23:59 23:59 23:59 23:59 Intake Total 3770 4250 5926 2743 Output Total 1050 1500 2600 800 Balance 2720 2750 3326 1943 Meds/Results Medications: Active Medications Generic Name Dose Route Start Last Admin Trade Name Freq PRN Reason Stop Dose Admin Acetaminophen 650 mg 10/10/21 23:52 Acetaminophen 325 Mg Tablet PO Q4H PRN Mild Pain (1-3) or Fever Docusate Sodium 100 mg 10/13/21 09:00 10/14/21 08:53 Docusate Sodium 100 Mg Capsule PO 100 mg Q12HR ZAHEER Administration Hydromorphone HCl 0.5 mg 10/13/21 07:47 10/13/21 23:14 Hydromorphone Hcl Inj (*Crx) 1 Mg/Ml Syr IV PUSH 0.5 mg Q3H PRN Administration Pain Rated 7-10 Ampicillin Sodium 1 gm in 50 mls @ 100 mls/hr 10/11/21 06:00 10/14/21 11:57 Ampicillin 1 Gm/Ns 50 Ml IVPB Infused Q6H ZAHEER Infusion Sodium Chloride 1,000 mls @ 125 mls/hr 10/10/21 23:55 10/14/21 12:48 Normal Saline Iv IV CONT Infu
[2021-10-14 14:36] VITALS: BP 129/83; PULSE 54; RESP 18; TEMP 36.2; O2SAT 100
--- NOTE | 2021-10-14 15:36 | PM.DS ---
DS: Admitting Diagnosis Discharge Date 10/14/2021 Admitting Diagnosis Pyelonephritis, left ureteral stent occlusion DS: Discharge Diagnosis Discharge Diagnosis (1) Pyelonephritis: Code(s): N12 - Tubulo-interstitial nephritis, not specified as acute or chronic Status: Acute Assessment and Plan: Patient presented with fever, nausea, and flank pain. Urine culture on presentation with growth of group B strep. Patient had clinical signs and symptoms consistent with pyelonephritis. She had symptomatic improvement with IV ampicillin and will continue p.o. ampicillin on discharge to complete 10 days of antibiotic therapy. Blood cultures negative to date and final cultures will be monitored. (2) Sepsis: Qualifiers: Sepsis acute organ dysfunction status: without acute organ dysfunction Sepsis type: Streptococcus group B Qualified Code(s): A40.1 - Sepsis due to streptococcus, group B Code(s): A41.9 - Sepsis, unspecified organism Status: Ruled-out Assessment and Plan: Ruled out. Patient was not septic. She had mild tachycardia but did not meet SIRS criteria for sepsis and had no evidence of end-organ damage. Lactic was within normal limits. (3) Occlusion of ureteral stent: Qualifiers: Encounter type: initial encounter Qualified Code(s): T83.192A - Other mechanical complication of indwelling ureteral stent, initial encounter Code(s): T83.192A - Other mechanical complication of indwelling ureteral stent, initial encounter Status: Acute Assessment and Plan: She had ongoing left stent pain. Possibly stent malfunction due to pyelonephritis. The stent was removed at the bedside on 10/14/[address] Everett. She will follow-up in 1 month with urology for further evaluation of left hydronephrosis with renal ultrasound and KUB prior to appointment. Follow up sooner if she develops pain, hematuria, clots, or UTI symptoms (4) Abnormal finding on breast imaging: Code(s): R92.8 - Other abnormal and inconclusive findings on diagnostic imaging of breast Status: Acute Assessment and Plan: CT abdomen/pelvis on 10/11 with incidental finding of asymmetric breast tissue more prominent on the left with areolar skin thickening per initial Stat report. This was not noted on final read by radiologist of either CT abdomen/pelvis on 10/07 or 10/11. I discussed these findings with radiologist, Dr. Valle who notes that CT abdomen/pelvis from 10/07 does not allow for visualization of breasts. CT on 10/11 also without any obvious breast abnormalities on secondary review. Patient was informed of incidental breast finding and will follow-up with her PCP to consider ultrasound and/or mammogram at PCP discretion. I have contacted Dr. Rupa Raymundo's office to explain these findings. (5) Continuous tobacco abuse: Code(s): Z72.0 - Tobacco use Status: Acute Assessment and Plan: Patient smokes 1/2 pack per day. She is not motivated to quit smoking at this time. Declined nicotine patch during hospitalization. Tobacco cessation education was provided. (6) Transaminitis: Code(s): R74.01 - Elevation of levels of liver transaminase levels Status: Acute Assessment and Plan: LFTs elevated on admission with increased up to 3x upper limit of normal. LFTs did trend down at time of discharge. Etiology for this is unclear. Liver was unremarkable on CT abdomen/pelvis. Repeat LFTs in 1 week to assess for improvement/resolution DS: Summary Hospital Course Hospital Course: Date of admission: 10/10/2021 Date of discharge: 10/14/2021 Emilee Rivera is a 36-year-old female with history of kidney stones with recent left ureteral stent in July 2021 and tobacco abuse who presented to the emergency department on 10/10/2021 with complaints of left-sided flank pain after being recently treated for UTI and started on Bactrim 3 days young
== END 2021-10-14 16:35 | disposition home or self-care (01) | DRG 699 ==
LOC: ANHED 23:51 → ANH2MED 23:57
PROVIDERS: Physician Assistant; Admitting Provider Internal Medicine; Emergency Provider Emergency Medicine; PCP Family Medicine; Visit Provider Physician Assistant
DX: T83.192A Other mechanical complication of indwelling ureteral stent, initial encounter (principal); N13.6 Pyonephrosis; R74.01 Elevation of levels of liver transaminase levels; F17.210 Nicotine dependence, cigarettes, uncomplicated; R92.8 Other abnormal and inconclusive findings on diagnostic imaging of breast; Z20.822 Contact with and (suspected) exposure to COVID-19; Z79.899 Other long term (current) drug therapy
CPT/HCPCS: 36415; 74177; 80048; 80053; 81001; 81025; 83605; 85025; 87040; 87077; 87086; 87088; 87502; 96361; 96365; 96366; 96375; 96376; 99285; A9270; C9803; G0378; J0290; J1170; J1885; J2270; J2405; J7030; Q9967; U0003; U0005

== ENCOUNTER 2022-11-15 13:13 | Emergency (ER) | payer OTHER, MEDICAID, SELFPAY ==
[2022-11-15 14:05] VITALS: BP 115/79; PULSE 79; RESP 14; TEMP 36.4; O2SAT 100
[2022-11-15] MEDS: ERYTHROMYCIN OPHTH OINTMENT 1 GM TUBE 1 APPLIC EACH EYE (15:20)
--- NOTE | 2022-11-15 16:03 | ED.EYEPROB ---
HPI - Eye Problem General Chief complaint: Eye Problems Stated complaint: burning and swelling to eyes Time Seen by Provider: 11/15/22 14:52 History of Present Illness HPI Narrative: Pt reports 2d of itching/irritation/swelling to bilateral eyes, does not think she had any recent contact with anything. Eyes feel irritated and dry. Had a similar episode about a month ago that resolved with cold compresses and she attributed that to being near barbecue smoke, but has not had any exposures recently Related Data Allergies Allergy/AdvReac Type Severity Reaction Status Date / Time talc Allergy Intermediate RASH, Verified 10/10/21 20:12 ITCHING BABY POWDER Review of Systems Review of Systems: CONST: No fever. HEENT: Sensation of eyes burning and itchy PMFSH Past Medical History Medical History Continuous tobacco abuse History of kidney stones Renal calculus, bilateral Surgical History Surgical History History of 3 sections History of appendectomy History of cholecystectomy History of cystoscopy History of dilation and curettage History of lithotripsy History of tubal ligation Family History Family History Father , At age 52 Acute myocardial infarction Diabetes mellitus Hypertension Heart disease CHF (congestive heart failure) Mother Hypertension Other Degenerative disorder of bone Social History Social History Social History: He lives at home with her 4 children. She is . Children are 17, 13, 9 and 2 years old. She works in a restaurant. She used to smoke a pack of cigarettes per day but cut back to 0.5 pack per day in 2018. She used to binge drink on the weekends but quit binge drinking in June of 2021. Surrogate decision maker:Chiqui Broussard, mother. Code status: Full code. Smoking packs per day: 0.5 Smoking cigarettes per day: 10.0 Years smoked: 25 Smoking pack-years: 12.50 Smoking status: Current every day smoker Tobacco type: cigarettes Alcohol intake: former Substance use: never Substance use type: does not use Spiritual care concerns: No Exam Narrative: EXAMINATION OF ORGAN SYSTEMS/BODY AREAS: Constitutional: Vital signs per nursing GENERAL:[No acute distress, non-toxic appearing.] HEAD: Normal with no signs of head trauma. EYES: Full, painless EOMI, PERRL, injected conjunctiva, swelling of bilateral eyelids. ENT: Hearing grossly intact LUNGS: Nonlabored breathing. HEART: [Regular rate and rhythm] ABD: [Soft], [nontender to palpation] EXT: Normal range of motion SKIN: Swelling bilateral eyelids NEURO: [Alert and oriented x 3. No gross focal sensory or strength deficits.] PSYCH: Normal affect Course Vital Signs Vital signs: Vital Signs Temperature 97.5 F L 11/15/22 14:05 Pulse Rate 79 11/15/22 14:05 Respiratory Rate 14 11/15/22 14:05 Blood Pressure 115/79 11/15/22 14:05 Pulse Oximetry 100 11/15/22 14:05 Oxygen Delivery Room Air 11/15/22 14:05 Temperature 97.5 F L 11/15/22 14:05 Pulse Rate 79 11/15/22 14:05 Respiratory Rate 14 11/15/22 14:05 Blood Pressure 115/79 11/15/22 14:05 Pulse Oximetry 100 11/15/22 14:05 Oxygen Delivery Room Air 11/15/22 14:05 MDM - Eye Problem MDM Narrative Medical decision making narrative: Patient presenting with bilateral eye itching, irritation, and swelling, VSS, on exam she has full, painless EOMI, PERRL, injected conjunctiva, swelling of bilateral eyelids, no fluorescein uptake, and irritation improves with tetracaine instillation. I do suspect more likely conjunctivitis and will start erythromycin ointment; considered uveitis however there is more irritation/eyelid involvement, very unlikely. Periorbital or orb
== END 2022-11-15 15:25 | disposition home or self-care (01) ==
PROVIDERS: Emergency Provider Emergency Medicine; PCP Physician Assistant
DX: H57.89 Other specified disorders of eye and adnexa (principal); Z87.442 Personal history of urinary calculi; Z90.49 Acquired absence of other specified parts of digestive tract; F17.210 Nicotine dependence, cigarettes, uncomplicated
CPT/HCPCS: 99283; A9270

== ENCOUNTER 2023-01-10 01:52 | Emergency (ER) | payer OTHER, MEDICAID, SELFPAY ==
--- NOTE | ~2023-01-10 | CT_ITS ---
CT of the Abdomen and Pelvis: Indication: Abdominal pain Technique: 2.5 mm axial scans were obtained through the abdomen and pelvis following intravenous adm inistration of 100 cc of Omnipaque 350. Dose reduction technique was used on this scan by utilizing a utomated exposure control and iterative reconstruction technique. The dose-length product (DLP) was 4 47.58 mGy-cm. COMPARISON: 10/11/2021 Findings: Scans through the lung bases are unremarkable. There is a 4 mm round stone at the mid to distal left ureter (axial image 124), with mild to moderate left hydroureteronephrosis to this level. There is some hyperenhancement of the urothelium at the pr oximal left ureter, which could indicate superimposed infection. Right renal cysts are present. No ri ght renal or right ureteral stone. No right hydronephrosis. The liver, spleen, pancreas, and adrenal glands are within normal limits. Cholecystectomy clips are p resent. No evidence of aortic aneurysm. No lymphadenopathy. No bowel obstruction or bowel wall thickening. There is no evidence to suggest acute appendicitis. Images through the pelvis were performed. Urinary bladder unremarkable. No adnexal mass seen. No asci bakari. Impression: 4 mm mid to distal left ureteral stone with mild to moderate left hydronephrosis. Suspected superimposed left urinary tract infection. Correlate with urinalysis. Reviewed, dictated and finalized at [facility]. Impression: 4 mm mid to distal left ureteral stone with mild to moderate left hydronephrosi s. Suspected superimposed left urinary tract infection. Correlate with urinalysis.
[2023-01-10 01:49] VITALS: BP 127/113; PULSE 93; RESP 12; TEMP 37.2; O2SAT 99
--- NOTE | 2023-01-10 02:00 | ED.ABDPAIN ---
HPI - Abdominal Pain General Chief Complaint: Abdominal Pain <JOSE James Last Filed: 01/10/23 02:13> Stated Complaint: flank pain <JOSE James Last Filed: 01/10/23 02:13> Time Seen by Provider: 01/10/23 01:54 <JOSE James Last Filed: 01/10/23 02:13> History of Present Illness HPI narrative: Patient is a 37-year-old female here for evaluation of severe left lower quadrant abdominal pain x4 hours. Patient states that she woke up in the [place] with the pain. It is severe in nature, coming in waves without warning. States that she tried to sleep it off but the pain persisted and moved into her left flank and low back which prompted ED evaluation. She received 4 of morphine and 4 Zofran in the ambulance with relief of her nausea but not her pain. She also did a bump of cocaine to help with her pain but this is not helped. No dysuria, urgency, frequency, fevers or chills. She does have a history of a septic kidney stone that required emergent stenting, patient states that today symptoms feel very different. <JOSE James Last Filed: 01/10/23 02:13> Related Data Allergies/Adverse Reactions: Allergies Allergy/AdvReac Type Severity Reaction Status Date / Time talc Allergy Intermediate RASH, Verified 10/10/21 20:12 ITCHING BABY POWDER <JOSE James Last Filed: 01/10/23 02:13> Review of Systems Review of Systems: Gen.: Denies fevers or chills Eyes: Denies eye pain or visual change ENT: Denies congestion Respiratory: Denies shortness of breath or cough CV: Denies chest pain or palpitations GI: Reports left lower quadrant abdominal pain denies burning, urgency, frequency or hematuria Musculoskeletal: Denies back pain or muscle pain Neuro: Denies numbness, tingling, weakness or focal weakness Skin: Denies rash Except as documented, all other systems reviewed and negative <JOSE James Last Filed: 01/10/23 02:13> PMFSH Past Medical History Medical History: Medical History Continuous tobacco abuse History of kidney stones Renal calculus, bilateral <Gladys Orlando PA-C - Last Filed: 01/10/23 02:13> Surgical History Surgical History: Surgical History History of 3 sections History of appendectomy History of cholecystectomy History of cystoscopy History of dilation and curettage History of lithotripsy History of tubal ligation <Gladys Orlando PA-C - Last Filed: 01/10/23 02:13> Family History Family History: Family History Father , At age 52 Acute myocardial infarction Diabetes mellitus Hypertension Heart disease CHF (congestive heart failure) Mother Hypertension Other Degenerative disorder of bone <Gladys Orlando PA-C - Last Filed: 01/10/23 02:13> Social History Social History: Social History Social History: He lives at home with her 4 children. She is . Children are 17, 13, 9 and 2 years old. She works in a restaurant. She used to smoke a pack of cigarettes per day but cut back to 0.5 pack per day in 2018. She used to binge drink on the weekends but quit binge drinking in June of 2021. Surrogate decision maker:Chiqui Broussard, mother. Code status: Full code. Smoking packs per day: 0.5 Smoking cigarettes per day: 10.0 Years smoked: 25 Smoking pack-years: 12.50 Smoking status: Current every day smoker Tobacco type: cigarettes Alcohol intake: former Substance use: never Substance use type: does not use Spiritual care concerns: No <Gladys Orlando PA-C - Last Filed: 01/10/23 02:13> Exam Narrative: APPEARANCE:
[2023-01-10] MEDS: HYDROmorphone HCL INJ (*CRX) 1 MG/ML SYR 0.5 MG IV PUSH ×2 (02:03→03:57)
[2023-01-10 02:26] VITALS: BP 142/98; PULSE 97; RESP 13; O2SAT 97
[2023-01-10 02:35] LABS: Basophils Absolute Auto 0.1 K/mm3 (0.0-0.1); Basophils Percent Auto 0.9 % (0.2-1.2); Eosinophils Absolute Auto 0.1 K/mm3 (0-0.3); Eosinophils Percent Auto 1.4 % (0-4.4); Hematocrit 43.2 % (37.0-47.0); Hemoglobin 14.5 g/dL (12.0-15.0); Immature Granulocyte Absolute 0.02 K/mm3 (0.00-0.031); Immature Granulocyte Percent A 0.2 % (0-0.5); Mean Corpuscular HGB Conc 33.6 g/dl (32-36); Mean Corpuscular Hemoglobin 32.2 pg (26-34); Mean Platelet Volume 9.4 fl (7.4-10.4); Monocytes Percent Auto 9.9 % (2.6-8.5); Neutrophils Absolute Auto 6.9 K/mm3 (1.3-6.7); Neutrophils Percent Auto 68.6 % (45.5-73.1); Platelet Count Result 263 k/mm3 (150-375); Red Cell Distribution Width 12.5 % (11.5-14.5)
[2023-01-10 02:45] LABS: Appearance Urine Cloudy (Clear); Bacteria Urine 2+ /hpf; Bilirubin Urine Negative (Negative); Blood Urine 3+ (Negative); Color Urine Yellow (Yellow); Glucose Urine UA Negative (Negative); Ketones Urine Negative (Negative); Leukocyte Esterase Ur 1+ LEU/UL (Negative); Nitrate Urine Negative (Negative); Non Pathogenic Casts 0-2; Protein Urine 2+ mg/dL (Negative); RBC Urine 51-100 /hpf (0-2); Specific Grav Ur 1.016 (1.001-1.035); Squamous Epithelial Cell Urine Occasional /hpf (Few); WBC Urine 21-50 /hpf
[2023-01-10 02:51] LABS: Alanine Aminotransferase 16 U/L (6-35); Albumin Level 3.9 g/dL (3.5-5.1); Alkaline Phosphatase 63 U/L (38-126); Anion Gap 3 mmol/L (8-16); Aspartate Amino Transferase 21 U/L (14-36); Bilirubin,Total 0.6 mg/dL (0.2-1.3); Blood Urea Nitrogen 8 mg/dL (7-17); Calcium 8.2 mg/dL (8.4-10.2); Carbon Dioxide 25 mmol/L (22-30); Chloride 109 mmol/L (98-107); Estimated CRCL calculation 81 ml/min; Estimated Glomerular Filt Rate > 60; Glucose 118 mg/dL (65-110); Potassium 3.8 mmol/L (3.4-5.0); Sodium 137 mmol/L (137-145)
[2023-01-10 03:04] LABS: Add Urine Microscopic? YES
[2023-01-10 04:35] VITALS: BP 118/64; PULSE 77; RESP 15; O2SAT 98
[2023-01-10] MEDS: KETOROLAC 15 MG/ML VIAL (*BKC) IV PUSH (05:40)
[2023-01-10 05:52] VITALS: BP 101/75; PULSE 75; RESP 13; O2SAT 98
[2023-01-10 06:25] VITALS: BP 104/52; PULSE 80; RESP 20; TEMP 36.6; O2SAT 98
== END 2023-01-10 06:26 | disposition home or self-care (01) ==
PROVIDERS: Emergency Provider Physician Assistant; PCP Physician Assistant
DX: N39.0 Urinary tract infection, site not specified (principal); N20.0 Calculus of kidney; K52.9 Noninfective gastroenteritis and colitis, unspecified; F17.210 Nicotine dependence, cigarettes, uncomplicated
CPT/HCPCS: 36415; 74177; 80053; 81001; 81025; 85025; 87077; 87086; 87186; 96365; 96375; 96376; 99284; J0131; J0696; J1170; J1885; Q9967

== ENCOUNTER 2023-01-27 18:52 | Emergency (ER) | payer OTHER, MEDICAID, SELFPAY ==
--- NOTE | ~2023-01-27 | XR_ITS ---
EXAMINATION: XR elbow RT min 3V DATE: 01/27/2023 19:24 INDICATION: Right elbow injury and pain. TECHNIQUE: 4 views of right elbow were obtained. COMPARISON: None. FINDINGS: Bone alignment is normal. No fracture. Joint spaces are well maintained. There is no elbow joint effusion. IMPRESSION: 1. No fracture. Reviewed, dictated and finalized at location E. IMPRESSION: 1. No fracture.
--- NOTE | 2023-01-27 18:53 | ED.UPPEXIN ---
HPI - Extremity Injury (Upper) General Chief Complaint: Extremity Injury, Upper Stated Complaint: Right Arm Pain Time Seen by Provider: 01/27/23 18:53 Source: patient Mode of arrival: ambulatory Limitations: no limitations History of Present Illness HPI narrative: Patient is a 37-year-old female who presents with right elbow pain after falling at work yesterday. Patient states she landed on elbow and since then has had mild swelling and pain to elbow. Patient states fingers are intermittently tingly but still able to move them and has normal strength. Denies any wrist hand or finger pain. Denies hitting head. Patient was still able to work all day. Patient took Excedrin migraine this morning for headache but has not taken any other pain medicine for symptoms. Related Data Home Medications Medication Instructions Recorded Confirmed No Home Medications 01/27/23 01/27/23 Allergies Allergy/AdvReac Type Severity Reaction Status Date / Time talc Allergy Intermediate RASH, Verified 01/27/23 19:04 ITCHING BABY POWDER Review of Systems Review of Systems: All systems reviewed & are unremarkable except as noted in HPI and below Constitutional: Constitutional: Denies body ache(s), Denies chills, Denies fatigue, Denies fever(s), Denies headache(s), Denies malaise and Denies weakness Eyes: Eyes: Denies blurry vision, Denies irritation and Denies loss of vision ENT: Denies otalgia, Denies headache(s), Denies nasal discharge, Denies sinus pain and Denies sore throat Cardiovascular: Cardiovascular: Denies chest pain, Denies irregular heart rhythm and Denies dyspnea Respiratory: Respiratory: Denies dyspnea Gastrointestinal: Gastrointestinal: Denies abdominal pain, Denies melena, Denies hematochezia, Denies diarrhea, Denies nausea and Denies vomiting Musculoskeletal: Musculoskeletal: Denies back pain, Denies myalgias, Reports arthralgias and Reports joint swelling Integumentary/Breasts: Skin/Breast: Denies pruritus and Denies rash Neurologic: Denies headache(s), Denies loss of vision and Denies weakness Psychiatric: Psychiatric: Reports no additional psychiatric complaints Endocrine: Endocrine: Denies fatigue PMFSH Past Medical History Medical History Continuous tobacco abuse History of kidney stones Renal calculus, bilateral Surgical History Surgical History History of 3 sections History of appendectomy History of cholecystectomy History of cystoscopy History of dilation and curettage History of lithotripsy History of tubal ligation Family History Family History Father , At age 52 Acute myocardial infarction Diabetes mellitus Hypertension Heart disease CHF (congestive heart failure) Mother Hypertension Other Degenerative disorder of bone Social History Social History Social History: He lives at home with her 4 children. She is . Children are 17, 13, 9 and 2 years old. She works in a restaurant. She used to smoke a pack of cigarettes per day but cut back to 0.5 pack per day in 2018. She used to binge drink on the weekends but quit binge drinking in June of 2021. Surrogate decision maker:Chiqui Broussard, mother. Code status: Full code. Smoking packs per day: 0.5 Smoking cigarettes per day: 10.0 Years smoked: 25 Smoking pack-years: 12.50 Smoking status: Current every day smoker Tobacco type: cigarettes Alcohol intake: former Substance use: never Substance use type: does not use Spiritual care concerns: No Comments At time of signature, agree with nursing past medical, surgical, social and family history. There is no relevant family history pertinent to the presenting complaint. Exam Const:
[2023-01-27 19:04] VITALS: BP 125/84; PULSE 86; RESP 16; TEMP 36.8; O2SAT 100
[2023-01-27 19:05] VITALS: BP 125/84; PULSE 86; RESP 16; TEMP 36.8; O2SAT 100
== END 2023-01-27 19:38 | disposition home or self-care (01) ==
PROVIDERS: Emergency Provider Nurse Practitioner Family; PCP Physician Assistant
DX: M70.21 Olecranon bursitis, right elbow (principal); F17.210 Nicotine dependence, cigarettes, uncomplicated
CPT/HCPCS: 73080; 99213; G0463

== ENCOUNTER 2024-11-06 16:42 | Outpatient (CLI) | payer OTHER, MEDICAID, SELFPAY ==
--- NOTE | ~2024-11-06 | XR_ITS ---
HISTORY: PAIN IN MEDIAL RIGHT FOOT. NKI. X 3 DYS COMPARISON: None TECHNIQUE: 3 views of the right foot were performed FINDINGS: No acute fracture or dislocation is appreciated. No significant degenerative disease is noted. The base of the fifth metatarsal is intact. No calcaneal spur is noted. No significant soft tissue swelling is present. IMPRESSION: No acute fracture or dislocation, as detailed above. Reviewed, dictated and finalized at location A.
--- OUTSIDE RECORDS SUMMARY | 2024-11-06 18:19 | XMS_ITS | Data Portability ---
Author Organization [facility] Address [address] [place] [address] Care Team Providers Care Radial Drill Operator Name Role Phone CLARA AGUILERA Primary Care Provider [phone] Assessment No assessment recorded. Plan of Treatment Reminders Order Date Submit Date Provider Last Modified By Organization Details Last Modified Time Details Appointments ANY 15 2024 03:30P OSWALDO SHIPLEY Not available Not available Not available ANY 2024 11:15A OSWALDO SHIPLEY Not available Not available Not available Lab rapid SARS CoV 2 Ag, QL IA, respirato ry specimen 2021 022 [email or web address] In-Office Order, Internal Use Only DO Not Attach Compendium DO Not Attach Compendium, Do Not Delete/merge, [id number] 02/05/2022 15:01:58 rapid strep group A, throat 2021 022 [email or web address] In-Office Order, Internal Use Only DO Not Attach Compendium DO Not Attach Compendium, Do Not Delete/merge, [id number] 02/05/2022 15:01:58 hepatitis B surface Ab, quantitat azam, serum 2019 020 [email or web address] 3 [facility], [address], [address] [address], [place], [address], 05/08/2020 16:04:48 PPD (purified protein derivativ e), skin test 2019 020 LUCIA In-Office Order, Internal Use Only DO Not Attach Compendium DO Not Attach Compendium, Do Not Delete/merge, [id number] 05/01/2020 15:25:52 Referral None recorded. Procedures None recorded. Surgeries None recorded. Imaging None recorded. Medication Orders clotrimaz ole-betam ethasone 1 %-0.05 % topical cream 2022 023 [facility], [address], [place], [id number], 11/06/2024 16:00:58 clotrimaz ole 1 % topical ointment 2022 023 [facility] #67494, [address], [place], [id number], 11/06/2024 16:00:53 betametha sone dipropion ate 0.05 % topical ointment 2022 023 [facility], [address], [place], [id number], 10/08/2022 16:39:37 amoxicill in 500 mg tablet 2021 022 [email or web address] [facility] #78389, [address], [place], [id number], 10/07/2022 15:46:01 Tubersol 5 tub. unit/0.1 mL intraderm al injection solution 2019 020 Not available 10/07/2022 15:46:38 Patient TargetsNo targets recorded. Patient Instructions Encounter Date Encounter Id Patient Instructions Last Modified By Organization Details Last Modified Time 05/08/2020 [id number] influenza (flu) vaccine: care instructions [email or web address] Not available 05/08/2020 16:04:48 tetanus and diphtheria booster: care instructions [email or web address] Not available 05/08/2020 16:04:48 10/07/2022 [id number] A healthy lifestyle: care instructions [email or web address] Not available 10/07/2022 16:12:49 Reason for Referral None Reported. Results Created Date Observation Date Name Description Value Unit Range Abnormal Flag Note LastModifiedBy Organization Detail LastModifiedTime 05/01/20 20 05/01/2020 PPD (fariba fied prote in deriv ative ), skin test Result Negati ve Not Available In-Office Order Internal Use Only DO Not Attach Compendium DO Not Attach Compendium, Do Not Delete/merge, [id number] 04/28/2020 11:39:23 05/08/20 20 05/08/2020 PPD (fariba fied prote in deriv ative ), skin test Result Negati ve Not Available In-Office Order Internal Use Only DO Not Attach Compendium DO Not Attach Compendium, Do Not Delete/merge, [id number] 04/28/2020 11:06:45 02/06/20 22 02/05/2022 rapid strep group A, throa t Strep negati ve Not Available In-Office Order Internal Use Only DO Not Attach Compendium DO Not Attach Compendium, Do Not Delete/merge, [id number] 02/05/2022 14:55:24 02/06/20 22 02/05/2022 rapid SARS CoV 2 Ag, QL IA, respi rator y speci men rapid SARS CoV 2 Ag, QL IA, respiratory specimen negati ve Not Available In-Office Order Internal Use Only DO Not Attach Compendium DO Not Attach Compendium, Do Not Delete/merge, [id number] 02/05/2022 14:47:25 06/28/20 21 06/28/2021 XR, foot No observ ation record ed. [address], [address], 07/01/2021 13:18:51 08/07/19 22 08/07/2021 CT, abdom en + pelvi s, w/ contr ast No observ ation record ed. [address], [address], 08/10/2021 17:33:39 08/08/19 22 08/07/2021 imagi ng/di agnos tic resul t No observ ation record ed. [address], [address], 08/10/2021 17:34:25 10/08/19 22 10/07/2021 CT, abdom en + pelvi s, w/ contr ast No observ ation record ed. [address] [facility] [address], [place], [address], 10/08/2021 09:34:37 10/12/19 22 10/10/2021 CT, abdom en + pelvi s, w/ contr ast No observ ation record ed. [address], [place], [address], 10/12/2021 09:56:50 01/11/20 23 01/10/2023 CT, abdom en + pelvi s, w/o contr ast No observ ation record ed. [address], [place], [address], 01/10/2023 10:28:00 01/28/20 23 01/27/2023 XR, elbow No observ ation record ed. [id number] [facility] [address], [place], [address], 02/01/2023 12:32:30 Result Notes None recorded. Problems No Known Problems Procedures Surgical History Date Name Laterality Status Provider Name and Address Organization Details Recorded Time 11/16/19 19 Date of Last Pap Smear completed MOSES Saldaña [facility] 03/03/2020 15:10:37 Appendectomy completed Marisol Reynoso CMA [place] [facility] 10/19/2017 12:19:46 Cholecystectomy completed VITALY Villar [facility] 10/19/2017 12:19:51 Dilation and Curettage completed VITALY Villar [facility] 10/19/2017 12:20:00 Caesarean Section completed Marisol Reynoso CMA [place] [facility] 10/19/2017 12:33:33 Tubal Ligation completed MOSES Saldaña [facility] 03/03/2020 15:16:42 Imaging Results Imaging Date Name Status LastModified by Organiz ation Details LastModified Time 06/28/2021 XR, foot completed [address] [place] [address], [address], 07/01/2021 13:18:51 08/07/2021 CT, abdomen + pelvis, w/ contrast completed [address], [address], 08/10/2021 17:33:39 08/07/2021 imaging/diagn ostic result completed [address], [address], 08/10/2021 17:34:25 10/07/2021 CT, abdomen + pelvis, w/ contrast completed [address], [address], 10/08/2021 09:34:37 10/10/2021 CT, abdomen + pelvis, w/ contrast completed [address], [address], 10/12/2021 09:56:50 01/10/2023 CT, abdomen + pelvis, w/o contrast completed [address], [address], 01/10/2023 10:28:00 01/27/2023 XR, elbow completed [address] [place] [address], [address], 02/01/2023 12:32:30 Procedure Notes None recorded. Medical Equipment None Reported. Allergies No known drug allergies Medications Name Sig Start Date Stop Date Status Note LastModified by Organization Details LastModified Time ondansetron odt 4 mg tbdp 02/02 completed Not Available Not Available Not Available levofloxaci n 500 mg tabs 02/02 completed Not Available Not Available Not Available tamsulosin hcl 0.4 mg caps 02/02 completed Not Available Not Available Not Available naproxen 500 mg tabs 07/04 completed Not Available Not Available Not Available freestyle mis lite 10/07 completed Not Available Not Available Not Available vp of product-pnv-dha 28-1-215.8 mg caps 10/07 completed Not Available Not Available Not Available oxycodone hcl 5 mg tabs 02/02 completed Not Available Not Available Not Available butalbital/ acetaminoph en/caffeine 50-325-40 mg tabs 03/03 completed Not Available Not Available Not Available freestyle mis lancets 10/07 completed Not Available Not Available Not Available hydrocodone /acetaminop hen 5-325 mgtabs 02/02 completed Not Available Not Available Not Available 08/06 1-20 mg-mcg tabs 07/04 completed Not Available Not Available Not Available freestyle bakari lite 10/07 completed Not Available Not Available Not Available naproxen 375 mg tablet TAKE 1 TABLET BY MOUTH TWICE DAILY 10/07 completed Not Available Not Available Not Available ipratropium 0.5 mg-albutero l 3 mg (2.5 mg base)/3 mL nebulizatio n soln Inhale 3 mL by nebulizat ion route as directed. 02/02 completed Not Available Not Available Not Available trazodone 50 mg tablet Take 1 tablet every day by oral route at bedtime for 30 days, for difficult y sleeping. 2024 active Not Available Not Available Not Avai lable azithromyci n 250 mg tablet TAKE 2 TABLETS (500 MG) BY ORAL ROUTE ONCE DAILY FOR 1 DAY THEN 1 TABLET (250 MG) BY ORAL ROUTE ONCE DAILY FOR 4 DAYS 02/02 completed Not Available Not Available Not Available ampicillin 500 mg capsule TAKE 1 CAPSULE BY MOUTH EVERY 6 HOURS 10/07 completed Not Available Not Available Not Available hydrocodone 5 mg-acetamin ophen 325 mg tablet TAKE 1 TABLET BY MOUTH EVERY 6 HOURS NEEDED FOR PAIN 7-10 10/07 completed Not Available Not Available Not Available prednisone 20 mg tablet Take 2 tablets daily x 4 days; Then 1 tablet daily x 4 days; Then 1/2 tablet daily x 4 days 02/02 completed Not Available Not Available Not Available Tubersol 5 tub. unit/0.1 mL intradermal injection solution Administe r .1ml interderm ally 10/07 completed Not Available Not Available Not Available sumatriptan 50 mg tablet TAKE 1 TABLET NEEDED FOR MIGRAINE, CAN REPEAT DOSE X1 AFTER 2 HOURS 2024 active Not Available Not Available Not Avai lable ciprofloxac in 500 mg tablet TAKE 1 TABLET BY MOUTH EVERY 12 HOURS UNTIL ALL TAKEN 10/07 completed Not Available Not Available Not Available amoxicillin 500 mg tablet TAKE 1 TABLET BY MOUTH EVERY 12 HOURS WITH MEALS FOR 10 DAYS 10/07 completed Not Available Not Available Not Available betamethaso ne valerate 0.1 % topical cream APPLY A THIN LAYER TO THE AFFECTED AREA(S) BY TOPICAL ROUTE ONCE DAILY 11/06 completed Not Available Not Available Not Available clotrimazol e-betametha sone 1 %-0.05 % topical cream APPLY TO THE AFFECTED AND SURROUNDI NG AREAS OF SKIN BY TOPICAL ROUTE 2 TIMES PER DAY IN THE MORNING AND EVENING FOR 2 WEEKS 11/06 completed Not Available Not Available Not Available gabapentin 300 mg capsule Take 1 capsule 3 times a day by oral route. 02/02 completed Not Available Not Available Not Available aspirin 81 mg chewable tablet Chew 1 tablet every day by oral route. 03/03 completed Not Available Not Available Not Available hydroxyzine HCl 25 mg tablet TAKE 1 TABLET BY MOUTH TWICE DAILY NEEDED 11/06 completed Not Available Not Available Not Available ibuprofen 600 mg tablet 10/07 completed Not Available Not Available Not Available methylpredn isolone 4 mg tablets in a dose pack FOLLOW PACKAGE DIRECTION S 11/06 completed Not Available Not Available Not Available betamethaso ne dipropionat e 0.05 % topical ointment APPLY THIN LAYER TOPICALLY TO THE AFFECTED AREA EVERY DAY FOR 14 DAYS 10/08 completed Not Available Not Available Not Available clotrimazol e 1 % topical cream APPLY TO THE AFFECTED AND SURROUNDI NG AREAS OF SKIN BY TOPICAL ROUTE 2 TIMES PER DAY IN THE MORNING AND EVENING X14 DAYS 11/06 completed Not Available Not Available Not Available naproxen 500 mg tablet Take 1 tablet twice a day by oral route. 02/02 completed Not Available Not Available Not Available Sprintec (28) 0.25 mg-0.035 mg tablet Take 1 tablet every day by oral route. 02/02 completed Not Available Not Available Not Available Vitamin 10/07 completed Not Available Not Available Not Available TIE UP WORKER-PNV-DHA 28 mg iron-1 mg-200 mg capsule 10/07 completed Not Available Not Available Not Available clotrimazol e 1 % topical ointment Apply 1 applicati on twice a day by topical route as directed for 14 days. 11/06 completed Not Available Not Available Not Available Blisovi 24 Fe 1 mg-20 mcg (24)/75 mg (4) tablet 07/04 completed Not Available Not Available Not Available Vitals Date Recorded Oxygen saturation Oxygen saturation in Arterial blood by Pulse oximetry Heart rate Respiratory rate Body height Body mass index (BMI) Body weight Systolic blood pressure Diastolic blood pressure Provider Name and Address Organization Details Last Updated DateTime 2 98 % 98 % 97 /min 20 /min 162.56 cm 26.8 kg/m2 25269.4 1 g 118 mm[Hg] 80 mm[Hg] Columba Marshall MA [facility] 2 14:40:38 Date Recorded Body temperature Provider Name a nd Address Organization Details Last Updated DateTime 02/05/2022 98.7 [degF] OSWALDO CADE Attn: [place], [address], [facility] 02/05/2022 14:46:30 Date Recorded Body height Body mass index (BMI) Body weight Respiratory rate Body temperature Oxygen saturation Oxygen saturation in Arterial blood by Pulse oximetry Heart rate Systolic blood pressure Diastolic blood pressure Provider Name and Address Organization Details Last Updated DateTime 3 162.56 cm 29.2 kg/m2 48866.1 g 18 /min 98 [degF] 96 % 96 % 86 /min 116 mm[Hg] 78 mm[Hg] Jess Chavez MA [facility] 3 15:45:47 Date Recorded Body height Body mass index (BMI) Body weight Heart rate Respiratory rate Oxygen saturation Oxygen saturation in Arterial blood by Pulse oximetry Systolic blood pressure Diastolic blood pressure Provider Name and Address Organization Details Last Updated DateTime 5 162.56 cm 29.3 kg/m2 05042.5 g 79 /min 17 /min 99 % 99 % 119 mm[Hg] 80 mm[Hg] Mari López MA [place] [facility] 5 16:31:21 Social History Question Answer Notes LastModified by Organizat ion Details LastModified Time Tobacco Smoking Status Current Every Day Smoker Marisol Reynoso CMA null, [place] [facility] 10/19/2017 12:19:33 What Is Your Level Of Alcohol Consumption? None Information not available 02/05/2022 Are You Blind Or Do You Have Difficulty Seeing? No Information not available 02/05/2022 What Is Your Level Of Caffeine Consumption? Moderate Information not available 02/05/2022 In The 14 Days Before Symptom Onset, Have You Had Close Contact With A Laboratory-confir med COVID-19 While That Case Was Ill? No Information not available 02/05/2022 In The 14 Days Before Symptom Onset, Have You Had Close Contact With A Person Who Is Under Investigation For COVID-19 While That Person Was Ill? No Information not available 02/05/2022 Have You Been To An Area Known To Be High Risk For COVID-19? No Information not available 02/05/2022 Are You Currently Employed? Yes Information not available 02/05/2022 What Type Of Diet Are You Following? REGULAR Information not available 02/05/2022 Do You Or Have You Ever Used E-cigarettes Or Vape? Never Used Electronic Cigarettes Information not available 03/03/2020 Are There Any Guns Present In Your Home? No Information not available 02/05/2022 What Was The Date Of Your Most Recent Tobacco Screening? 11/06/2024 Information not available 11/06/2024 What Is Your Relationship Status? Information not available 02/05/2022 Do You Use Your Seat Belt Or Car Seat Routinely? Yes Information not available 02/05/2022 Do You Have Smoke And Carbon Monoxide Detectors In Your Home? Yes Information not available 02/05/2022 Are You Passively Exposed To Smoke? Yes Information no t available 02/05/2022 Do You Or Have You Ever Used Smokeless Tobacco? Never Used Smokeless Tobacco Information not available 03/03/2020 How Much Tobacco Do You Smoke? 0.25 PPD 3-4 Cigs Per Day Information not available 03/03/2020 Do You Feel Stressed (tense, Restless, Nervous, Or Anxious, Or Unable To Sleep At Night)? [id number] Information not available 02/05/2022 Do You Use Any Illicit Or Recreational Drugs? No Information not available 02/05/2022 Do You Use Sunscreen Routinely? No Information not available 02/05/2022 On What Date Was Tobacco Cessation Counseling Provided? 11/06/2024 Information not available 11/06/2024 How Many Years Have You Smoked Tobacco? 12 thulsema Information not available 10/19/2017 Sex: Female Functional Status Question Answer Note LastModified by Organization D etails LastModified Time Are you able to care for yourself? Yes Information n ot available 02/05/2022 Mental Status None recorded. Family History Relationship Description Onset Age of this Age Resolved Age Notes LastModified by Organization Details LastModified Time Brother Asthma thulsema Not available 10/19/2017 12:34:19 Brother Migraine thulsema Not availabl e 10/19/2017 12:35:46 Father Coronary arterioscler osis thulsema Not available 2017 12:34:41 Father Heart disease thulsema Not available 2017 12:35:02 Father Hypertensive disorder thulsema Not available 2017 12:35:19 Father Hypercholest erolemia thulsema Not available 2017 12:35:29 Mother Depressive disorder thulsema Not available 2017 12:34:47 Mother Hypertensive disorder thulsema Not available 2017 12:35:19 Mother Migraine thulsema Not available 10/19/2017 12:35:46 Sister Diabetes mellitus thulsema Not available 2017 12:34:55 Sister Hypertensive disorder thulsema Not available 2017 12:35:19 Sister Migraine thulsema Not available 10/19/2017 12:35:46 Medical History Condition Response Coronary Artery Disease N Other N Atrial Fibrillation N High Blood Pressure N Depression N COPD N Blood Clots N Anxiety Disorder N Muscle, Joint, or Bone Problems N Acid Reflux (GERD) N Cancer N Stroke N ADHD N High Cholesterol N Liver Disease N Headaches N Kidney or Bladder Problems N Thyroid Problems N GI Problems N Skin Problems Y Anemia N Heart Attack (NM) N Diabetes N Seizures/Epilepsy N Asthma Y Allergies N Hepatitis N Heart Failure N Osteoporosis N Gynecological History Statement/Question Response Date of Last Mammogram Flow Moderate Date of LMP 10/23/2024 Duration of Flow (days) 6 Age at Menarche 14 Current Control Method Tubal Ligat ion Age at First Child 18 Frequency of Cycle (Q days) 28 Menses Monthly Y Date of Last Pap Smear 11/15/2018 LMP Approximate Obstetrics History GPAL:G 5 P 3 1 1 3 Type Value Multiple Births 0 Full Term 3 Induced 0 Spontaneous 1 Premature 1 Living 3 Ectopics 0 Total 5 Immunizations Vaccine Type Date Status Note Provider Nam e and Address Organization Details Recorded Time DTP 7 completed MOSES Saldaña, [place] - [facility] 03/03/2020 15:24:20 DTP 8 raissa Beckwith [place], [place] [facility] 03/03/2020 15:24:25 DTP 8 [facility]ES [place], [place] [facility] 03/03/2020 15:24:29 DTP 0 completed MOSES Saldaña, [place] [facility] 03/03/2020 15:24:36 DTP 8 [place]ES [place] [facility] 03/03/2020 15:24:39 OPV, Unspecified 7 MOSES [place] [facility] 03/03/2020 15:24:51 OPV, Unspecified 8 [place]ES [place] [facility] 03/03/2020 15:24:55 OPV, Unspecified 0 completed Holly Beckwith [facility] [place], [place] [facility] 03/03/2020 15:24:59 OPV, Unspecified 8 completed Hollykassandra ReillyMOSES moya, [place] [facility] 03/03/2020 15:25:06 MMR 0 completed Hollykassandra Beckwith [facility]ES [place], [place] [facility] 03/03/2020 15:25:23 MMR 8 completed Holly Beckwith [facility] [place], [place] [facility] 03/03/2020 15:25:26 Hib, unspecified formulation 0 completed Hollykassandra Beckwith MOSES huerta, [place] - [facility] 03/03/2020 15:25:36 Hep B, unspecified formulation 8 completed Hollykassandra Beckwith [facility] [place], [place] [facility] 03/03/2020 15:25:45 Hep B, unspecified formulation 8 completed Holly Beckwith [facility] [place] [facility] 03/03/2020 15:25:51 Hep B, unspecified formulation 8 completed Holly Beckwith [facility] [place], [place] [facility] 03/03/2020 15:26:01 Influenza, split virus, quadrivalent, preservative 0 completed Kamini Soto [place], [place] [facility] 05/08/2020 17:03:51 Tdap 0 completed Kamini Soto [place] [facility] 05/08/2020 17:05:02 Past Encounters Encounter ID Performer Location Encounter Start Date Encounter Closed Date Diagnosis/Indication Diagnosis SNOMED-CT Code Diagnosis ICD10 Code Diagnosis Note [id number] SATYA Rojas NP [facility] [address] [place] [address] 10/19/2017 11:58:54 10/19/2017 17:29:18 Thoracic back pain 063621511 M54.6 Start gabapentin as directed. Low back pain 949924339 M54.5 Continue naproxen and norco as needed. Lumbar radiculopathy 128 150505 M54.16 Obtain MRI of lumbar and thoracic spine. Continue conservati ve tx- ice, rest. F/u 2 weeks [id number] SATYA Rojas NP [facility] [address] [place] [address] 11/02/2017 10:29:38 11/04/2017 12:50:45 Thoracic back pain 121269150 M54.6 D/c gabapentin . Low back pain 996065476 M54.5 Continue naproxen and norco (RX left over from ER visit) as needed. Lumbar radiculopathy 128 293925 M54.16 Obtain MRI of lumbar and thoracic spine. Continue conservati ve tx- ice, rest. F/u 2 weeks [id number] SATYA Rojas NP [facility] [address] [place] [address] 07/04/2018 15:27:35 07/04/2018 16:45:52 Uses oral contraception 4814911 Z30.41 -Start sprintec as directed Upper resp iratory infection 56266847 J06.9 -Duoneb tx this visit-Star t oral antibiotic s-Start oral steroids-F /u prn [id number] OSWALDO WONG [facility] [address] [facility] [place] [address] 02/02/2019 15:55:05 02/05/2019 08:21:01 Adult health examination 181050266 Z00.00 Patient presents to establish. She is 10 weeks and following OB. No concerns. Exam normal. - continue following with OB- f/u as needed [id number] Bri Huang MA [facility] [address] [place] [address] 07/24/2019 13:59:44 07/25/2019 10:40:24 Tuberculosis screening 491027423 Z11.1 [id number] OSWALDO WONG [facility] [address] [place] [address] 03/03/2020 15:06:01 03/04/2020 09:44:48 Tuberculosis screening 009679536 Z11.1 - tb placed. return tuesday before 2 pm for reading. She needs two step Immunizati on status unknown 727928489 Z76.89 History an d physical examination, school 96520394 Z02.0 patient presents for physical and TB test for [employer] [employer] [employer]. paper worked filled out and returned. BP normal. Not on any medication s. - discussed diet- excercise 30 mins 5x week- f/u prn- tb placed today [id number] Rupa Richardson MD [facility] [address] [place] [address] 04/28/2020 11:38:19 04/29/2020 10:42:17 Tuberculosis screening 408516448 Z11.1 [id number] Rupa Richardson MD [facility] [address] [place] [address] 05/08/2020 14:40:18 05/09/2020 08:18:57 Administration of diphtheria, pertussis, and tetanus vaccine 922094172 Z23 Administra tion of influenza vaccine 39320113 Z23 [id number] OSWALDO CADE [facility] [address] [place] [address] 02/05/2022 14:07:12 02/08/2022 13:13:24 Viral syndrome 585400873 B34.9 rapid strep and COVID negative Streptococ sue tonsillitis 54056083 J03.00 rapid strep and COVID negativePE x- mild cervical LAD with TTP, bilateral tonsils erythemato us with white exudateswi ll treat for streptake NSAIDs for pain relief Depression screening 171 475846 Z13.31 PHQ 3 [id number] OSWALDO CADE [facility] [address] [place] [address] 10/07/2022 15:41:22 10/07/2022 16:16:19 Xerosis due to atopic dermatitis 998706010 L85.3 web spaces of fingersusi ng honduran generic cream w/ reliefsent similar cream as prescripti on Overweight 478789842 E66 .3 discussed increasing exercise and healthier food options, high protein, low fat diet Dermatitis of eyelid 934 31112 H01.139 x2 wksunknown causePEx- moderate xerosis and mild erythema below bilateral eyes, lateral to nosetrial benadryl for rhinorrhea trial aquaphor/v aseline BIDf/u in 2 wks if symptoms do not improve Depression screening 171 839759 Z13.31 PHQ 0 [id number] OSWALDO CADE [facility] [address] [place] [address] 11/06/2024 16:24:04 11/06/2024 16:58:06 Refractory migraine without aura 848999008 G43.019 Generalize d anxiety disorder 23093179 F41.1 Fatigue 36792904 R53.82 Overweight 835410628 E66 .3 discussed increasing exercise and healthier food options, high protein, low fat diet Pain in right foot 92637 71407 80569 M79.671 turned foot into ridge 2 wks agounabel to put fully weight on itTTP medial inner aspect Lump in up per outer quadrant of right breast 6129706997 96736 N63.11 Difficulty sleeping 3013 57817 G47.9 Health Concerns Section Related Observation LastModified by Organization Detai ls LastModified Time None Recorded Concern Status LastModified by Organization Details LastModified Time None Recorded Advance Directives Directive None Recorded Payers Encounter Date Sequence Insurance Name Policy Number Policy Pace Covered Member ID Pace Member ID Guarantor Name 04/28/2020 1 [facility] [id number] Nixon Rivera [id number] Emilee Rivera 05/08/2020 1 [facility] [id number] Nixon Rivera [id number] Emilee Rivera 02/05/2022 1 [facility] [id number] Nixon Rivera [id number] Emilee Rivera Notes Date Note Type Note Provider Name and Address Organization Details Recorded Time 02/05/2022 text/html Pt presents with sore throat, L ear pain, chills, fatigue, and dizziness x2 days. Reports she recently returned from [place] and thought she had fluid in her ears. C/o sharp L ear pain and swelling/tendernes s on the left side of her neck x2 days. Pt states she was unable to get out of bed yesterday morning due to fatigue and weakness. Pt has not taken any medications for her symptoms. Denies fever, chest pain, SOB, n/v/d, abd pain, or headaches. OSWALDO CADE Attn: [address]ing[address] [place], [address], [facility] 02/05/2022 15:02:42 10/07/2022 text/html Pt presents with facial rash x2 wks. Reports that rash is below both of her eyes with redness, dry skin, and itching. She has been using cool compresses. C/o dry and runny nose. Denies any new face wash, lotion, or make up. No known allergies. OSWALDO CADE Attn: [address]ing[address] [facility] [place], [place], [address], [facility] 10/08/2022 15:10:22 OBGyn Episode No OBEpisode recorded.
== END 2024-11-06 16:43 | disposition home or self-care (01) ==
PROVIDERS: PCP Physician Assistant; Visit Provider Physician Assistant
DX: M79.671 Pain in right foot (principal)
CPT/HCPCS: 73630

== ENCOUNTER 2024-12-14 13:01 | Emergency (ER) | payer OTHER, MEDICAID, SELFPAY ==
--- NOTE | ~2024-12-14 | CT_ITS ---
CT abdomen pelvis wo con Ordering provider: Owen Harvey MD History: 39 years Female with . R flank pain w/ hx of kidney stones . Comparison: January 10, 2023 Technique: CT abdomen and pelvis without IV and without oral contrast. Automated exposure control and iterative reconstruction technique were employed. The dose-length product was 224.78 mGy-cm. Findings: VISUALIZED LOWER CHEST: Normal. UPPER ABDOMINAL ORGANS: Liver: Normal. Gallbladder: Normal. Spleen: Normal. Stomach/duodenum: Normal. Pancreas: Normal. Adrenals: Normal. Kidneys: 4 mm stone in the right kidney upper pole. Large cyst is seen in the right kidney all measur ing 4 x 3.4 cm. Tiny stones seen in the left kidney midpole. 5 mm stone seen in the left kidney lower pole. Soft tissue density most likely a cyst is seen in the left kidney lower pole measuring 1.3 cm. PELVIC ORGANS: The bladder is underfilled. BOWEL AND MESENTERY: Colon: No evidence of diverticulitis. No evidence of appendicitis. Small Bowel: Normal. No obstruction. Peritoneum/mesentery: No free air or free fluid. No mesenteric lymphadenopathy. RETROPERITONEUM: Normal aorta. No retroperitoneal lymphadenopathy. MUSCULOSKELETAL: Superficial soft tissues: The superficial soft tissues are normal. Bones: Normal spine. IMPRESSION: 1. Bilateral kidney stones. No ureteric stones or hydronephrotic changes. 2. No evidence of appendicitis, diverticulitis or intestinal obstruction. Reviewed, dictated and finalized at location A.
--- OUTSIDE RECORDS SUMMARY | 2024-12-14 13:04 | XMS_ITS | Patient Health Record ---
Author Organization [facility] Address [address] [address] Care Team Providers Care Nuclear Worker Technician Name Role Phone Nabeel Beebbir Primary Care Provider Reason For Referral No Information Medications Medication SIG (Take, Route, Frequency, Duration) Notes Start Date End Date Status Naprosyn 500 MG 1 tablet with food o r milk as needed Orally every 12 hrs for 30 days 10/13/2017 Active HYDROcodone-Acetaminophen 5-300 MG 1 tablet as needed Orally every 6 hrs Active Social History Tobacco use other than smoking: Question Answer Notes Are you an other tobacco user? No Problems Problem Type SNOMED Code ICD Code Onset Dates Problem Status W/U Status Risk Notes Problem Gastroesophageal reflux disease (614502610) GERD (gastroesophag eal reflux disease) (K21.9) Active confirmed Problem Asthma (253817690) Asthma (J45.909) Active confirmed Problem Kidney stone (11640215) Kidney stones (N20.0) Active confirmed Problem Pathological fracture of vertebra (778312986) T12 compression fracture (M48.54XA) Active confirmed Plan Of Treatment No Information Insurance Providers Payer Name Payer Address Payer Phone Subscriber Number Group Number Insured Name Patient Relationship to Insured Coverage Start Date Coverage End Date [facility] [address] [address] [place] [id number] . [id number] MENDY Rivera Self - patient is the insured 8 [place] [address] [address] [place], [place] [id number] Rivera, MENDY Self - patient is the insured Medical (General) History Surgical History Surgery Date(Month/Year) Appendectomy 2004 Cholecystectomy 2010 DNC 2006 C-sections 2007,2011 Hospitalization History Reason Date(Month/Year) See surgeries
[2024-12-14 13:06] VITALS: BP 121/80; PULSE 74; RESP 18; TEMP 36.2; O2SAT 100
[2024-12-14] MEDS: ACETAMINOPHEN 500 MG TABLET 1000 MG PO (15:05)
[2024-12-14] MEDS: KETOROLAC 15 MG/ML VIAL (*BKC) IV PUSH (15:20)
[2024-12-14 15:24] LABS: Basophils Absolute Auto 0.1 K/mm3 (0.0-0.1); Basophils Percent Auto 0.9 % (0.2-1.2); Eosinophils Absolute Auto 0.1 K/mm3 (0-0.3); Eosinophils Percent Auto 1.8 % (0-4.4); Hematocrit 42.3 % (37.0-47.0); Hemoglobin 13.9 g/dL (12.0-15.0); Immature Granulocyte Absolute 0.01 K/mm3 (0.00-0.031); Immature Granulocyte Percent A 0.2 % (0-0.5); Lymphocytes Absolute Auto 1.98 K/mm3 (0.9-3.2); Lymphocytes Percent Auto 35.9 % (18.3-44.2); Mean Corpuscular HGB Conc 32.9 g/dl (32-36); Mean Corpuscular Hemoglobin 31.4 pg (26-34); Mean Corpuscular Volume 95.5 fl (80-100); Mean Platelet Volume 9.4 fl (7.4-10.4); Monocytes Absolute Auto 0.6 K/mm3 (0.1-0.6); Monocytes Percent Auto 10.7 % (2.6-8.5); Neutrophils Absolute Auto 2.8 K/mm3 (1.3-6.7); Neutrophils Percent Auto 50.5 % (45.5-73.1); Platelet Count Result 202 k/mm3 (150-375); Red Blood Count 4.43 M/mm3 (4.2-5.4); Red Cell Distribution Width 12.4 % (11.5-14.5); White Blood Count 5.5 K/mm3 (4.5-10.0)
[2024-12-14 15:25] LABS: BEDSIDEPREGUCG Negative (Negative)
[2024-12-14 15:33] LABS: Alanine Aminotransferase 13 U/L (6-35); Albumin Level 4.1 g/dL (3.5-5.1); Alkaline Phosphatase 38 U/L (38-126); Anion Gap 6 mmol/L (4-12); Aspartate Amino Transferase 22 U/L (14-36); Bilirubin,Total 0.4 mg/dL (0.2-1.3); Blood Urea Nitrogen 9 mg/dL (7-17); Calcium 8.6 mg/dL (8.4-10.2); Carbon Dioxide 27 mmol/L (22-30); Chloride 107 mmol/L (98-107); Estimated CRCL calculation 85 ml/min; Estimated Glomerular Filt Rate > 60; Glucose 93 mg/dL (65-110); Lipase 117 U/L (23-300); Potassium 4.1 mmol/L (3.4-5.0); Sodium 140 mmol/L (137-145)
[2024-12-14 15:34] LABS: Add Urine Microscopic? YES; Appearance Urine Clear (Clear); Bacteria Urine None Seen /hpf; Bilirubin Urine Negative (Negative); Blood Urine Negative (Negative); Color Urine Yellow (Yellow); Glucose Urine UA Negative (Negative); Ketones Urine Trace mg/dL (Negative); Leukocyte Esterase Ur Trace LEU/UL (Negative); Nitrate Urine Negative (Negative); Non Pathogenic Casts 0-2; Protein Urine Negative (Negative); Specific Grav Ur 1.024 (1.001-1.035); Squamous Epithelial Cell Urine Few /hpf (Few); pH Urine 6.5 (5.0-9.0)
--- NOTE | 2024-12-14 16:18 | ED.GENADULT ---
HPI - General Adult General Chief complaint: Back Pain/Injury Stated complaint: RL back pain Time Seen by Provider: 12/14/24 14:14 History of Present Illness HPI narrative: This is a 49-year-old female history of kidney stones presenting right-sided back/flank pain. Symptoms started 3-4 days ago. It is sharp/achy. It is worse with movement and is positional. Patient notes that she has been moving this weekend to moving multiple objects including headboard. 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 She denies dysuria urgency frequency or hematuria. She says this is not feel like when she has had kidney stones in the past. She has had diarrhea for the last several. Unclear if that is related to her current complaint Related Data Allergies Allergy/AdvReac Type Severity Reaction Status Date / Time talc Allergy Intermediate RASH, Verified 01/27/23 19:04 ITCHING BABY POWDER PMFSH Past Medical History Medical History Continuous tobacco abuse History of kidney stones Renal calculus, bilateral Surgical History Surgical History History of lithotripsy History of cystoscopy History of tubal ligation History of 3 sections History of dilation and curettage History of cholecystectomy History of appendectomy Family History Family History Father , At age 52 Acute myocardial infarction Diabetes mellitus Hypertension Heart disease CHF (congestive heart failure) Mother Hypertension Other Degenerative disorder of bone Social History Social History Social History: He lives at home with her 4 children. She is . Children are 17, 13, 9 and 2 years old. She works in a restaurant. She used to smoke a pack of cigarettes per day but cut back to 0.5 pack per day in 2018. She used to binge drink on the weekends but quit binge drinking in June of 2021. Surrogate decision maker:Chiqui Broussard, mother. Code status: Full code. Smoking packs per day: 0.5 Smoking cigarettes per day: 10.0 Years smoked: 25 Smoking pack-years: 12.50 Smoking status: Current every day smoker Tobacco type: cigarettes Alcohol intake: former Substance use: never Substance use type: does not use Spiritual care concerns: No Exam Narrative: APPEARANCE: No apparent distress. Head: atraumatic. EYES: EOMI, NOSE: Atraumatic NECK: Trachea midline RESPIRATORY: No increased rate of breathing clear to auscultation CARDIOVASCULAR: RRR, no peripheral edema ABDOMINAL: Non-distended soft nontender MUSCULOSKELETAl: No midline spinal tenderness, tenderness over the right paralumbar/parathoracic region NEURO: Alert. Moving 4/4 extremities SKIN:: Warm, dry. Normal color PSYCHIATRIC: Normal affect Course Vital Signs Vital signs: Vital Signs Temperature 97.2 F L 12/14/24 13:06 Pulse Rate 74 12/14/24 13:06 Respiratory Rate 18 12/14/24 13:06 Blood Pressure 121/80 12/14/24 13:06 Pulse Oximetry 100 12/14/24 13:06 Temperature 97.2 F L 12/14/24 13:06 Pulse Rate 74 12/14/24 13:06 Respiratory Rate 18 12/14/24 13:06 Blood Pressure 121/80 12/14/24 13:06 Pulse Oximetry 100 12/14/24 13:06 Medical Decision Making [facility] Narrative Medical decision making narrative: -Course: 39-year-old female presenting with right-sided back/flank pain. CT abdomen pelvis did not reveal any ureteral stones although she does have large cyst on her right kidney. Urine with 11-20 white blood cells and trace leuk esterase. Patient does not have any urinary symptoms such as dysuria urgency or frequency. She does not have any fevers and she does not have a elevated white blood cell. Laboratory studies within normal limits. Based on patient's history and physical is likely musculoskeletal back pain, but given the white blood cells in her urine we will treat her with course of cefdinir. She will be treated with a course of NSAIDs and muscle relaxers. Primary care follow-up return precautions given. -DDX includes but is not limited to: Kidney stone, kidney infection, muscle strain Vital Signs Vital Signs: Vital Signs Temperature 97.2 F L 12/14/24 13:06 Pulse Rate 74 12/14/24 13:06 Respiratory Rate 18 12/14/24 13:06 Blood Pressure 121/80 12/14/24 13:06 Pulse Oximetry 100 12/14/24 13:06 Temperature 97.2 F L 12/14/24 13:06 Pulse Rate 74 12/14/24 13:06 Respiratory Rate 18 12/14/24 13:06 Blood Pressure 121/80 12/14/24 13:06 Pulse Oximetry 100 12/14/24 13:06 Lab Data 12/14/24 15:13 12/14/24 15:13 Labs: Lab Results 12/14/24 12/14/24 12/14/24 Range/Units 15:13 15:17 15:22 WBC 5.5 (4.5-10.0) K/mm3 RBC 4.43 (4.2-5.4) M/mm3 Hgb 13.9 (12.0-15.0) g/dL Hct 42.3 (37.0-47.0) % MCV 95.5 (80-100) fl MCH 31.4 (26-34) pg MCHC 32.9 (32-36) g/dl RDW 12.4 (11.5-14.5) % Plt Count 202 (150-375) k/mm3 MPV 9.4 (7.4-10.4) fl Immature Gran % (Auto) 0.2 (0-0.5) % Neut % (Auto) 50.5 (45.5-73.1) % Lymph % (Auto) 35.9 (18.3-44.2) % [place] % (Auto) 10.7 H (2.6-8.5) % Eos % (Auto) 1.8 (0-4.4) % Baso % (Auto) 0.9 (0.2-1.2) % Lymph # (Auto) 1.98 (0.9-3.2) K/mm3 [place] # (Auto) 0.6 (0.1-0.6) K/mm3 Eos # (Auto) 0.1 (0-0.3) K/mm3 Baso # (Auto) 0.1 (0.0-0.1) K/mm3 Abs Immat Gran (auto) 0.01 (0.00-0.031) K/mm3 Absolute Neuts (auto) 2.8 (1.3-6.7) K/mm3 Absolute Nucleated RBC 0.000 (0.0-0.012) K/mm3 Nucleated RBC % 0.0 (0.0-0.2) % Sodium 140 (137-145) mmol/L Potassium 4.1 (3.4-5.0) mmol/L Chloride 107 (98-107) mmol/L Carbon Dioxide 27 (22-30) mmol/L Anion Gap 6 (4-12) mmol/L BUN 9 (7-17) mg/dL Creatinine 0.81 (0.7-1.0) mg/dL Estim Creat Clear Calc 85 ml/min Estimated GFR > 60 (59 - ) Glucose 93 (65-110) mg/dL Calcium 8.6 (8.4-10.2) mg/dL Total Bilirubin 0.4 (0.2-1.3) mg/dL AST 22 (14-36) U/L ALT 13 (6-35) U/L Alkaline Phosphatase 38 (38-126) U/L Total Protein 7.0 (6.3-8.2) g/dL Albumin 4.1 (3.5-5.1) g/dL Lipase 117 (23-300) U/L Urine Color Yellow (Yellow) Urine Appearance Clear (Clear) Urine pH 6.5 (5.0-9.0) Ur Specific [place] 1.024 (1.001-1.035) Urine Protein Negative (Negative) mg/dL Urine Glucose (UA) Negative (Negative) mg/dL Urine Ketones Trace H (Negative) mg/dL Ur Blood (Man) Negative (Negative) Urine Nitrate Negative (Negative) Urine Bilirubin Negative (Negative) Urine Urobilinogen 1.0 (<2.0) mg/dL Leukocyte Esterase Rfl Trace H (Negative) BARBIE/UL Urine RBC 3-5 H (0-2) /hpf Urine WBC 11-20 H (0-3) /hpf Ur Squamous Epith Cells Few (Few) /hpf Urine Bacteria None seen /hpf Urine Casts 0-2 POC Urine HCG, Qual Negative (Negative) Discharge Plan Discharge Clinical Impression: Acute flank pain, UTI (urinary tract infection) Patient Disposition: Home Condition: Stable Instructions: Antibiotic Form, Urinary Tract Infection in Women (DC), Acute Low Back Pain (ED) Additional Instructions: You were seen emergency department for back pain. I believe this to be musculoskeletal and would like to treat you with Motrin/Tylenol and muscle relaxers. Your urine does have some white blood cells which may be an indication for infection. To be safe, we will treat you with antibiotics. Please follow-up with your primary care physician for further management. If you develop any new or worsening symptoms such as severe pain, pain on urination, or if your condition getting worse please return to ED for re-evaluation. Patient Language: Armenian Prescriptions: New ibuprofen 800 mg tablet 800 mg PO TID PRN (Reason: pain) 7 Days Qty: 21 0RF acetaminophen 500 mg tablet 1,000 mg PO TID PRN (Reason: desmond) 7 Days Qty: 42 0RF methocarbamol 750 mg tablet 1,500 mg PO TID Qty: 35 0RF cefdinir 300 mg capsule 300 mg PO Q12H Qty: 14 0RF Follow-up/Referrals: Angeline,OSWALDO Siegel [Primary Care Provider] -
[2024-12-14 17:00] VITALS: BP 130/80; PULSE 70; RESP 16; O2SAT 100
== END 2024-12-14 17:00 | disposition home or self-care (01) ==
PROVIDERS: Emergency Provider Emergency Medicine; PCP Physician Assistant
DX: N39.0 Urinary tract infection, site not specified (principal); F17.210 Nicotine dependence, cigarettes, uncomplicated
CPT/HCPCS: 36415; 74176; 80053; 81001; 81025; 83690; 85025; 87086; 96374; 99284; A9270; J1885